=== PATIENT | male | born 1960 | race Caucasian/White ===

== ENCOUNTER 2016-07-12 07:41 | Day surgery (SDC) | payer BC ==
[2016-07-12] MEDS ORDERED: Dextrose 5%-Lactated Ringers 1,000 ML IV SCH (08:00)
[2016-07-12] MEDS ORDERED: Glycopyrrolate 0.2 MG/ML 2 ML SYRINGE IVPUSH ONE (08:45)
[2016-07-12] MEDS ORDERED: Midazolam 1 MG/ML 2 ML SDV ONE (09:33)
[2016-07-12] MEDS ORDERED: fentaNYL 100 MCG/2 ML SDV ONE (09:33)
[2016-07-12] MEDS ORDERED: Propofol 200 MG/20 ML SDV ONE (09:34)
[2016-07-12 11:15] VITALS: BP 108/71
--- NOTE | 2016-07-16 12:11 | OR ---
DATE OF PROCEDURE: 07/12/2016 PREOPERATIVE DIAGNOSES: 1. Upper abdominal pain and heartburn. 2. Indications for screening colonoscopy. POSTOPERATIVE DIAGNOSES: 1. Moderate-sized hiatal hernia with active gastroesophageal reflux disease. 2. [id number] antral gastritis and duodenitis. 3. Uncomplicated left colonic diverticulosis. OPERATIVE PROCEDURE: 1. Esophagogastroduodenoscopy with. a. Biopsy of esophagogastric junction for histologic evaluation. b. Biopsies of antrum for CLOtest. 2. Flexible colonoscopy. ANESTHESIA: IV sedation. INDICATION FOR PROCEDURE: This 55-year-old referred for evaluation of some heartburn and epigastric discomfort. He also meets indication for colon screening. Plan is to proceed with upper and lower endoscopy with biopsies and/or polypectomy as indicated. Potential risks including bleeding and perforation were discussed, and the patient wishes to proceed. DETAILS OF PROCEDURE: The patient was taken to the operating room and placed in a left lateral decubitus position. IV sedation was administered, after which the upper GI endoscope was passed orally through the length of the esophagus and into the stomach with retroflexion view of the fundus, thereafter through the pyloric channel and into the proximal duodenum. FINDINGS: Included normal hypopharynx, larynx, upper esophageal sphincter, and esophageal body. At the EG junction, there was a moderate hiatal hernia measuring around 2 cm to 3 cm with some grossly active gastroesophageal reflux disease, with there being quite a bit in the way of redness and friability of the mucosa at that level. No stricturing or gross evidence of neoplasia was seen. There was some slight upward extension of the gastroesophageal junction mucosal lining above the gastric folds, indicative of possible Hines's esophagus. Within the stomach, there was some redness within the antrum and proximal duodenum, beyond that throughout the remainder of the duodenum at the junction of the third and fourth portions was unremarkable. At this point, biopsies were obtained from the antrum and sent for CLOtest for H. pylori. Multiple biopsies were then obtained from the esophagogastric junction, sent for histologic evaluation. Minimal bleeding from the biopsy site was seen and the procedure was then concluded. Attention was then taken to the colonoscopy. Initial digital rectal exam was performed and was unremarkable. The colonoscope was then passed to the level of the rectum with retroflexion revealing uncomplicated hemorrhoidal columns. The scope was then eventually passed to the cecum. There was some liquid and solid stool, but only smaller areas of the mucosal surface were obscured. There was some uncomplicated left-sided diverticulosis, otherwise there were no areas of colitis. No polyps or other signs of neoplasia. The scope was then withdrawn. The above findings reconfirmed. Plan at this point, I began the patient on Protonix 40 mg daily. We will see the patient back in [facility] on 07/28/2016 to see how the medical management is going and discuss long-term treatment options regarding the gastroesophageal reflux disease. With regard to the colonoscopy, he does not have any family history of colon neoplasia, and given this, the next recommended colonoscopy would be in 10 years. Alejo Sharpe MD /[id number]
== END 2016-07-12 11:27 | disposition home or self-care (01) ==
LOC: JP.SDS 07:41
PROVIDERS: ATTEND Surgery
DX: Z12.11 Encounter for screening for malignant neoplasm of colon (principal); K29.50 Unspecified chronic gastritis without bleeding; K29.80 Duodenitis without bleeding; K57.30 Diverticulosis of large intestine without perforation or abscess without bleeding; K44.9 Diaphragmatic hernia without obstruction or gangrene
CPT/HCPCS: 43239; 45378; 87081; 88305; J2250; J2704; J3010; J7042

== ENCOUNTER 2016-08-02 06:09 | Inpatient (IN) | payer BC ==
[2016-08-02] MEDS ORDERED: Midazolam 1 MG/ML 2 ML SDV ONE (07:19)
[2016-08-02] MEDS ORDERED: fentaNYL 250 MCG/5 ML SDV ONE (07:19)
[2016-08-02] MEDS ORDERED: Ondansetron 4 MG/2 ML SDV ONE (07:20)
[2016-08-02] MEDS ORDERED: Succinylcholine/Normal Saline 200 MG/10 ML Syringe ONE (07:20)
[2016-08-02] MEDS ORDERED: Propofol 200 MG/20 ML SDV ONE (07:20)
[2016-08-02] MEDS ORDERED: Glucagon,Human Recombinant 1 MG Vial ONE (07:20)
[2016-08-02] MEDS ORDERED: Rocuronium 50 MG/5 ML Vial ONE ×2 (07:20→08:59)
[2016-08-02] MEDS ORDERED: Neostigmine Methylsulfate 1 MG/ML 5 ML Syringe ONE (07:20)
[2016-08-02] MEDS ORDERED: Dexamethasone 4 MG/ML SDV ONE ×2 (07:20→09:54)
[2016-08-02] MEDS ORDERED: Albuterol/Ipratropium 3.0-0.5 MG/3 ML Neb Soln NEB ONE (07:30)
[2016-08-02] MEDS ORDERED: Naloxone 0.4 MG/ML SDV IVPUSH PRN (07:31)
[2016-08-02] MEDS: Dextrose 5%-Lactated Ringers 1,000 ML IV SCH ×2 (07:37→11:10)
[2016-08-02] MEDS: HYDROmorphone/Normal Saline 15 MG/30 ML PCA IV PRN ×2 (07:38→07:40)
[2016-08-02] MEDS ORDERED: ePHEDrine 50 MG/ML SDV ONE (08:26)
[2016-08-02] MEDS ORDERED: ceFAZolin 2 GM in Premix Bag 1 BAG IV ONE (08:30)
[2016-08-02] MEDS ORDERED: fentaNYL 100 MCG/2 ML SDV ONE (09:20)
[2016-08-02] MEDS ORDERED: Phenylephrine 1% 10 MG/ML SDV ONE (09:27)
[2016-08-02] MEDS ORDERED: Lactated Ringers 1,000 ML ONE (09:31)
[2016-08-02] MEDS ORDERED: Dextrose 5%-Lactated Ringers 1,000 ML IV SCH (12:15)
[2016-08-02] MEDS ORDERED: Ondansetron 4 MG/2 ML SDV IVPUSH PRN (12:28)
[2016-08-02] MEDS ORDERED: Albuterol/Ipratropium 3.0-0.5 MG/3 ML Neb Soln INH PRN (12:29)
[2016-08-02] MEDS: Metoclopramide 10 MG/2 ML SDV IVPUSH SCH ×2 (13:45→20:10)
[2016-08-02] MEDS ORDERED: Pantoprazole 40 MG Vial IV SCH (14:00)
[2016-08-02] MEDS: ceFAZolin 2 GM in Sodium Chloride 0.9% 50 ML IV SCH ×2 (15:10→22:29)
[2016-08-02] MEDS: Albuterol/Ipratropium 3.0-0.5 MG/3 ML Neb Soln INH SCH ×3 (15:15→22:31)
[2016-08-02] MEDS: Formoterol/Mometasone 200-5 MCG 8.8 GM Inhaler IH SCH (20:10)
[2016-08-03] MEDS: Metoclopramide 10 MG/2 ML SDV IVPUSH SCH ×2 (02:33→07:40)
[2016-08-03] MEDS: Albuterol/Ipratropium 3.0-0.5 MG/3 ML Neb Soln INH SCH (07:11)
[2016-08-03] MEDS: Formoterol/Mometasone 200-5 MCG 8.8 GM Inhaler IH SCH (07:11)
[2016-08-03] MEDS: ceFAZolin 2 GM in Sodium Chloride 0.9% 50 ML IV SCH (07:40)
[2016-08-03] MEDS ORDERED: HYDROmorphone 2 MG Tab PO PRN (07:48)
[2016-08-03 08:14] VITALS: BP 112/60
[2016-08-03] MEDS ORDERED: Hydrochlorothiazide 12.5 MG Cap PO SCH (09:00)
[2016-08-03] MEDS ORDERED: Lisinopril 20 MG Tab PO SCH (09:00)
--- NOTE | 2016-08-04 00:34 | DISCH ---
ADMISSION DIAGNOSES: Gastroesophageal reflux disease refractory to medical management, hypertension, asthma, DISCHARGE DIAGNOSES: Diagnostic laparoscopy with Kell fundoplication with repair of paraesophageal hernia with mesh, excision of mediastinal lipoma, and wedge biopsy of left lobe of liver for paraesophageal diaphragmatic hernia associated with gastroesophageal reflux disease refractory to medical management, mediastinal lipoma, metastatic nodular lesion surface of medial aspect of hepatic segment 3. Date of surgery 08/02/2016. HISTORY: Jose Lees is a 55-year-old male who has had GERD refractory to medical management. After preoperative evaluation and discussion of possible risks and possible complications, he wished to proceed with surgical procedure. HOSPITAL COURSE: Caty had his surgery on 08/02/2016. He had no operative complications. On postop day 1, he tolerated a full liquid diet. His pain was well managed. His activity was good and he was ready to be discharged to home. PHYSICAL EXAMINATION: GENERAL: Jose is a 55-year-old male. VITAL SIGNS: Height is 6 feet. Weight is 242 pounds. TPR is 97.6, 81, 18. Blood pressure 107/67. HEENT: Negative. NECK: Supple. HEART: Regular rate and rhythm. LUNGS: Clear. ABDOMEN: Dressings are dry and intact. Abdominal binder is on. EXTREMITIES: Without peripheral edema. DISPOSITION: Discharged to home. CONDITION: Stable and improving. FOLLOWUP: With Alejo Sharpe MD, at [facility] on 08/11/2016 at 9:00 a.m. HOME MEDICATIONS: Dilaudid 2 mg 1 to 2 every 4 hours p.r.n. pain. He is to resume his home medication of Tylenol 325 mg every 4 hours p.r.n. pain. ProAir inhaler 2 puffs inhalation every 4 hours p.r.n. shortness of breath. DuoNeb 3.0-0.5/3 mL, 3 mL inhalation 4 times a day p.r.n. shortness of breath, Symbicort 160/4.5 mcg 2 puffs inhalation twice daily, Flonase 2 sprays in each nostril twice daily and lisinopril hydrochlorothiazide 20/12.5 mg one tablet daily, Protonix 40 mg daily. DIET AFTER DISCHARGE: Full liquid diet for 2 weeks. Drink 8 to 10 glasses of water a day. ACTIVITY: As tolerated. No lifting greater than 10 pounds for 2 weeks[address] Driving, do not drive on pain medication. Shower bathing, may shower. Wear abdominal binder for 2 weeks and then as tolerated. Keep operative site clean and dry. Notify provider of fever, increased pain, nausea, vomiting, and use incentive spirometer 10 times every hour while awake.
--- NOTE | 2016-08-10 09:50 | OR ---
DATE OF PROCEDURE: 08/02/2016 PREOPERATIVE DIAGNOSIS: Gastroesophageal reflux disease refractory to medical management. POSTOPERATIVE DIAGNOSES: 1. Gastroesophageal reflux disease refractory to medical management associated with large paraesophageal diaphragmatic hernia. 2. Mediastinal lipoma. 3. Nodular lesion over the medial aspect of hepatic segment III. OPERATIVE PROCEDURE: Diagnostic laparoscopy with: 1. Kell fundoplication with repair of paraesophageal diaphragmatic hernia with mesh (67021). 2. Excision of mediastinal lipoma (14209). 3. Wedge excision of a nodular lesion of hepatic segment III (26014). ANESTHESIA: General. COURTESY DRIVER: Anju Cook PA-C. INDICATION FOR PROCEDURE: This is a 55-year-old male presenting with longstanding gastroesophageal reflux disease that has become progressively refractory to medical management. After preoperative evaluation and discussion, he wished to proceed with a Kell fundoplication. Potential risks of the procedure including bleeding, infection, injury to the viscera in the area, problems with fundoplication such as dysphagia, gas-bloat syndrome, disorders of gastric emptying rate, as well as possible incomplete relief of reflux symptoms were all gone over, along with the remote possibility of cardiopulmonary, septic, or hemorrhagic complications leading to , and the patient wishes to proceed. DETAILS OF PROCEDURE: The patient was taken to the operating room, and after general endotracheal anesthesia was induced, the patient was placed in a lithotomy position. Hopper catheter was inserted and the abdomen prepped and draped. At 15 cm inferior 5 cm was left of xiphoid process, transverse incision was made and peritoneal cavity entered under direct vision with an Optiview trocar inflated to 15 mmHg pressure with CO2. Laparoscope was then reinserted. No underlying trocar insertion site injuries were seen. Following this, 4 additional trocars were placed across the upper and mid abdomen, and general exploration was undertaken. The patient was noted to have a fairly marked hepatomegaly, as well as quite a bit of omental fat. Apart from that, there was a small nodular lesion over the medial-most aspect of the hepatic segment III. For diagnostic purposes, this was excised by means of wedge resection using the Harmonic scalpel for dissection. This specimen was then delivered from the field with good hemostasis being confirmed. At this point, the liver was retracted anteriorly. The patient was noted to have a fairly large diaphragmatic hernia with a significant paraesophageal component to it. This contained some omentum, as well as perigastric fat and a portion of the fundus of the stomach. The hernia was reduced, and the peritoneum to the right, anterior, and to the left of the distal esophagus was incised and reflected downward. The esophagus was then dissected free from the crura on each side, and the dissection posterior to the esophagus lead to an area of lipoma, which was then dissected free and removed to facilitate a more adequate crural closure. This lipoma was delivered piecemeal through the camera port. At this point, the esophagus was further dissected away from some of the areolar___ soft tissues, and at that point, a roughly 5 cm intraabdominal esophageal length was confirmed without traction around the Eri drain, which at that point had been placed at the EG junction. The crural repair it was then accomplished with a series of 0-Ethibond sutures reinforced with PTFE pledgets. Given the extent of the crural defect, a Phasix mesh was selected. This was cut such that it lay across the crural repair and up along the esophagus on each side. This was fixed in position with the titanium tacking screws. At this point, the omentum was divided away from the greater curvature of the stomach, beginning at the midportion of the stomach, with Harmonic scalpel. The dissection then continued upward to divide the short gastric vessels, including the highest and posterior short gastric vessels. There was a small amount of bleeding from one of the short gastric vessels, which was controlled with the Harmonic scalpel and then subsequently reinforced with 4 mL of fibrin sealant into that area. The fundus at that point was nicely mobile and the tip of the fundus retrieved through retroesophageal window. The Cutler drain at that point had been removed. A guidewire was then passed per Anesthesia across the esophagus and into the stomach and, over that, a 54-Yakut Savary dilator positioned. A 3-stitch 2 cm fundoplication was then accomplished with 0-Ethibond sutures, reinforced with PTFE pledgets. Each of these sutures included bites of the underlying esophagus to help fix the position, and then the uppermost fundoplication stitch was also taken up to the diaphragm overlying it, and then one additional stitch with the same suture and pledget combination was placed on the left side of the fundoplication up to the diaphragm as well. At this point, the dilator and wire were removed, and the fundoplication was felt to be adequately floppy. No further problems were noted. Trocars were then sequentially removed and the peritoneal cavity deflated. Incisions were closed with some 6-0 Vicryl skin stitch. The camera port was closed at fascia level with 0-Vicryl stitch. The patient was taken to the recovery room in a satisfactory condition. Physician senior sales assistant, Anju Cook, played an essential role in assisting in this case, helping to position the patient, retracting structures as needed, as well suturing and cutting sutures as been indicated. Her presence improved the patient's safety and decreased operative time. Alejo Sharpe MD /[id number]
== END 2016-08-03 10:10 | disposition home or self-care (01) | DRG 220 ==
LOC: JP.SDS 06:09 → JP.SDSSCHI 06:09 → UNDOADMIN 11:00 → JP.MS 11:00 → JP.SDSSCHI 11:00 → UNDOADMIN 11:00 → EDSTATUS 12:50 → UNDODISIN 08-03 10:10 → UNDOADMIN 08-11 11:00 → JP.SDSSCHI 08-11 11:00
PROVIDERS: ADMIT Surgery; ATTEND Surgery
PROC: 0BUR4JZ (ICD-10-PCS; principal; 2016-08-02)
PROC: 0FB24ZX Excision of Left Lobe Liver, Percutaneous Endoscopic Approach, Diagnostic (ICD-10-PCS; principal; 2016-08-02)
PROC: 0WBC4ZX Excision of Mediastinum, Percutaneous Endoscopic Approach, Diagnostic (ICD-10-PCS; principal; 2016-08-02)
PROC: 0BUS4JZ (ICD-10-PCS; principal; 2016-08-02)
PROC: 0DV44ZZ Restriction of Esophagogastric Junction, Percutaneous Endoscopic Approach (ICD-10-PCS; principal; 2016-08-02)
DX: K21.9 Gastro-esophageal reflux disease without esophagitis (principal); D17.4 Benign lipomatous neoplasm of intrathoracic organs; I10 Essential (primary) hypertension; J45.909 Unspecified asthma, uncomplicated; K76.9 Liver disease, unspecified; R16.0 Hepatomegaly, not elsewhere classified; K44.0 Diaphragmatic hernia with obstruction, without gangrene
CPT/HCPCS: 88304; 88307; 94640; 94640-76; A9270-GY; C1781; C9113; J0690; J1100; J1170; J1610; J2250; J2370; J2405; J2704; J2765; J3010; J7042; J7050; J7120; J7620

== ENCOUNTER 2016-08-04 10:31 | Emergency (ER) | payer BC ==
[2016-08-04 11:09] VITALS: BP 107/69
--- NOTE | 2016-08-04 11:38 | EDM.PDOC ---
ED HPI RENAL/ - General Chief Complaint: Gastrointestinal Problem Stated Complaint: ACID REFLUX/INFECTION? Time Seen by Provider: 08/04/16 11:21 Source: Reports: Patient, Old records, RN notes reviewed History Limitations: Reports: No limitations - History of Present Illness INITIAL COMMENTS - FREE TEXT/NARRATIVE: 55-year-old gentleman presents emergency Department a complaint of burning with urination he did provide a urine sample at the clinic was instructed by the clinic nursing staff to report to the emergency department for further treatment and evaluation, he states all the symptoms really started this morning he is postop day 3 from a Kell fundoplication he has had chills at home felt feverish he has also not had a bowel movement in 3 days has tried Dulcolax without success he is going to try mag citrate today - Related Data Allergies/ADRs: Allergies Allergy/AdvReac Type Severity Reaction Status Date / Time No Known Allergies Allergy Verified 08/04/16 11:14 Home Meds: Home Meds Acetaminophen [Tylenol] 325 mg PO Q4HR PRN 07/05/16 [History] Albuterol Sulfate [Proair Hfa] 2 puff IH Q4HR PRN 07/05/16 [History] Albuterol/Ipratropium [DuoNeb 3.0-0.5 MG/3 ML] 3 ml IH QID PRN 07/05/16 [History ] Budesonide/Formoterol [Symbicort 160-4.5 MCG] 2 puff INH BID 07/05/16 [History] Fluticasone Propionate [Flonase] 2 spray NASBOTH BID 07/05/16 [History] Lisinopril/Hydrochlorothiazide [Lisinopril-Hctz 20-12.5 mg Tab] 1 tab PO DAILY 07/05/16 [History] Pantoprazole Sodium [Protonix] 40 mg PO DAILY 08/02/16 [History] HYDROmorphone [Dilaudid] 2 - 4 mg PO Q4H PRN #50 tablet 08/03/16 [Rx] Mometasone/Formoterol [Dulera 200-5 MCG] 2 puff IH BIDRT 08/04/16 [History] Past Medical History HEENT History: Reports: Hard of hearing, Impaired vision Other HEENT History: reading glasses Cardiovascular History: Reports: Hypertension Respiratory History: Reports: Asthma Gastrointestinal History: Reports: GERD Other Gastrointestinal History: "belching" Musculoskeletal History: Reports: Arthritis, Fracture - Infectious Disease History Infectious Disease History: Reports: Chicken pox - Past Surgical History HEENT Surgical History: Reports: None GI Surgical History: Reports: Cholecystectomy, Colon, EGD, Kell fundoplication Musculoskeletal Surgical History: Reports: Shoulder surgery Other Musculoskeletal Surgeries/Procedures:: right shoulder surgery 20 or so years ago Social & Family History - Family History Family Medical History: Noncontributory - Tobacco Use Smoking Status *Q: Never Smoker Second Hand Smoke Exposure: No - Caffeine Use Caffeine Use: Reports: Coffee - Alcohol Use Days Per Week of Alcohol Use: 2 Number of Drinks Per Day: 3 Total Drinks Per Week: 6 - Recreational Drug Use Recreational Drug Use: No ED ROS GENERAL - Review of Systems Review Of Systems: See Below Constitutional: Reports: chills HEENT: Reports: No symptoms Respiratory: Reports: No Symptoms Cardiovascular: Reports: No symptoms GI/Abdominal: Reports: Abdominal pain : Reports: dysuria. Denies: flank pain, hematuria ED EXAM, RENAL/ - Physical Exam Exam: See Below Exam Limited By: No limitations General Appearance: alert, WD/WN, no apparent distress Respiratory/Chest: no respiratory distress, lungs clear, normal breath sounds, no accessory muscle use Cardiovascular: regular rate, rhythm, no murmur GI/Abdominal: soft, tender (All surgical sites, wounds clean dry and intact, no suprapubic tenderness no CVA tenderness) Course - Vital Signs Last Recorded V/S: Last Vital Signs Temp 97.5 F 08/04/16 11:13 Pulse 123 H 08/04/16 11:13 Resp 15 08/04/16 11:13 BP 107/69 08/04/16 11:13 Pulse Ox 93 L 08/04/16 11:13 - Orders/Labs/Meds Orders: Active Orders 24 hr Category Date Time Status cefTRIAXone 1 GM,Lidocaine 1% 2.1 ML Med 08/04/16 12:41 Ordered cefTRIAXone [Rocephin] 1 gm Lidocaine 1% [Xylocaine-MPF 1%] 2.1 ml IM ONETIME Labs: Laboratory Tests 08/04/16 08/04/16 08/04/16 Range/Units 11:44 11:44 11:44 WBC 30.2 H* (4.5-11.0) K/uL RBC 4.65 (4.30-5.90) M/uL Hgb 14.6 (12.0-15.0) g/dL Hct 42.5 (40.0-54.0) % MCV 91 (80-98) fL MCH 31 (27-31) pg MCHC 34 (32-36) % Plt Count 303 (150-400) K/uL Neut % (Auto) 86 H (36-66) % Lymph % (Auto) 3 L (24-44) % [place] % (Auto) 11 H (2-6) % Eos % (Auto) 0 L (2-4) % Baso % (Auto) 0 (0-1) % Sodium 137 L (140-148) mmol/L Potassium 3.8 (3.6-5.2) mmol/L Chloride 97 L (100-108) mmol/L Carbon Dioxide 26 (21-32) mmol/L Anion Gap 17.8 H (5.0-14.0) mmol/L BUN 25 H (7-18) mg/dL Creatinine 1.6 H (0.8-1.3) mg/dL Est Cr Clr Drug Dosing 56.58 mL/min Estimated GFR (MDRD) 45 L (>60) Glucose 125 H (74-106) mg/dL Lactic Acid 1.8 (0.4-2.0) mmol/L Calcium 8.7 (8.5-10.1) mg/dL Total Bilirubin 1.5 H (0.2-1.0) mg/dL AST 56 H (15-37) U/L ALT 83 H (12-78) U/L Alkaline Phosphatase 84 (46-116) U/L Total Protein 7.5 (6.4-8.2) g/dL Albumin 3.8 (3.4-5.0) g/dL Globulin 3.7 H (2.3-3.5) g/dL Albumin/Globulin Ratio 1.0 L (1.2-2.2) Departure - Departure Time of Disposition: 12:44 Disposition: Home, Self-Care 01 Condition: good Clinical Impression: Urinary tract infection Qualifiers: Urinary tract infection type: acute cystitis Hematuria presence: with hematuria Qualified Code(s): N30.01 - Acute cystitis with hematuria Forms: ED Department Discharge Additional Instructions: Start antibiotic tomorrow, take full course, Please followup with your primary care provider in 3-5 days if not better, please call return to the emergency department with worsening of symptoms. - My Orders Last 24 Hours: My Active Orders 08/04/16 12:41 cefTRIAXone 1 GM,Lidocaine 1% 2.1 ML cefTRIAXone [Rocephin] 1 gm Lidocaine 1% [ Xylocaine-MPF 1%] 2.1 ml IM ONETIME - Assessment/Plan Last 24 Hours: My Active Orders 08/04/16 12:41 cefTRIAXone 1 GM,Lidocaine 1% 2.1 ML cefTRIAXone [Rocephin] 1 gm Lidocaine 1% [ Xylocaine-MPF 1%] 2.1 ml IM ONETIME Plan: Assessment Acuity = acute Site and laterality = urinary tract infection complicated by patient postop day 3 Kell fundoplication Etiology = probable Escherichia coli Manifestations = dysuria Location of injury = home Lab values = WBC elevated at 30.2 cassettes leukocytosis, sodium low 137 is hyponatremia creatinine elevated 1.6 this is acute renal failure stage GIII a lactic acid normal at 1.8 total bilirubin elevated 1.5 consistent hyperbilirubinemia AST elevated 56 ALT elevated at 83 his elevated liver enzymes urinalysis performed in the clinic that showed WBCs and positive for nitrates culture is pending Plan I did review lab work with him he was provided 1 g Rocephin in the emergency department started on ciprofloxacin 500 by mouth twice a day x10 days, followup with primary care in 3-5 days if no improvement Patient was in agreement with the plan all questions were answered, they were instructed to return to the emergency department or call for worsening symptoms. This note was dictated using [employer] voice recognition software please call with any questions.
[2016-08-04] MEDS ORDERED: cefTRIAXone 1 GM, Lidocaine 1% 2.1 ML IM ONE ×2 (12:41)
== END 2016-08-04 13:25 | disposition home or self-care (01) ==
LOC: JP.ED 10:31
DX: N30.01 Acute cystitis with hematuria (principal); I10 Essential (primary) hypertension; J45.909 Unspecified asthma, uncomplicated; K21.9 Gastro-esophageal reflux disease without esophagitis; Z90.49 Acquired absence of other specified parts of digestive tract; Z98.890 Other specified postprocedural states
CPT/HCPCS: 36415; 80053; 83605; 85025; 96372; 99284; J0696

== ENCOUNTER 2020-03-01 12:37 | Inpatient (IN) | payer BC ==
--- NOTE | 2020-03-01 13:27 | EDM.PDOC ---
ED HPI GENERAL MEDICAL PROBLEM - General Chief Complaint: Abdominal Pain Stated Complaint: stomach pain Time Seen by Provider: 03/01/20 13:25 Source of Information: Reports: Patient History Limitations: Reports: No Limitations - History of Present Illness INITIAL COMMENTS - FREE TEXT/NARRATIVE: pt was sent from the clinic by Dr Saba with rt lower abdomanal pain. He started having discomfort yesterday and it was worse today. Onset: Other ( started yesterday. ) Duration: Hour(s): Location: Reports: Abdomen Associated Symptoms: Reports: Loss of Appetite, Other (pt had a bm today. ) Right Lower Abdomen Pain Score (Numeric/FACES): 5 - Related Data Allergies Allergy/AdvReac Type Severity Reaction Status Date / Time No Known Allergies Allergy Verified 03/01/20 13:28 Home Meds: Home Meds Acetaminophen [Tylenol] 325 mg PO Q4HR PRN 07/05/16 [History] Albuterol Sulfate [Proair Hfa] 2 puff IH Q4HR PRN 07/05/16 [History] Albuterol/Ipratropium [DuoNeb 3.0-0.5 MG/3 ML] 3 ml IH QID PRN 07/05/16 [History] Budesonide/Formoterol [Symbicort 160-4.5 MCG] 2 puff INH BID 07/05/16 [History] Fluticasone Propionate [Flonase] 2 spray NASBOTH BID 07/05/16 [History] Lisinopril/Hydrochlorothiazide [Lisinopril-Hctz 20-12.5 mg Tab] 1 tab PO DAILY 07/05/16 [History] Mometasone/Formoterol [Dulera 200-5 MCG] 2 puff IH BIDRT 08/04/16 [History] Aspirin [Halfprin] 81 mg PO DAILY 03/01/20 [History] Multivitamin [Multi-Vitamin Daily] 1 each PO DAILY 03/01/20 [History] Past Medical History HEENT History: Reports: Hard of Hearing, Impaired Vision Other HEENT History: reading glasses Cardiovascular History: Reports: Hypertension Respiratory History: Reports: Asthma Gastrointestinal History: Reports: GERD Other Gastrointestinal History: "belching" Musculoskeletal History: Reports: Arthritis, Fracture - Infectious Disease History Infectious Disease History: Reports: Chicken Pox - Past Surgical History GI Surgical History: Reports: Cholecystectomy, Colon, EGD, Kell Fundoplication Musculoskeletal Surgical History: Reports: Shoulder Surgery Social & Family History - Family History Family Medical History: Noncontributory - Caffeine Use Caffeine Use: Reports: Coffee ED ROS GENERAL - Review of Systems Review Of Systems: See Below Constitutional: Reports: Decreased Appetite HEENT: Reports: No Symptoms Respiratory: Reports: No Symptoms Cardiovascular: Reports: No Symptoms Endocrine: Reports: No Symptoms GI/Abdominal: Reports: Abdominal Pain, Decreased Appetite : Reports: No Symptoms Musculoskeletal: Reports: No Symptoms Skin: Reports: No Symptoms ED EXAM, GI/ABD - Physical Exam Exam: See Below Text/Narrative:: pt arrived with a history of 2 days of rt lower abdomanal pain. Exam Limited By: No Limitations General Appearance: Alert, Anxious, Moderate Distress Ears: Normal TMs Throat/Mouth: Normal Inspection Head: Atraumatic Neck: Normal Inspection Respiratory/Chest: No Respiratory Distress Cardiovascular: Regular Rate, Rhythm GI/Abdominal Exam: Tender, Other (pt is quite guarded in the rt lower abdoman. ) (Male) Exam: Deferred Rectal (Males) Exam: Deferred Back Exam: Normal Inspection Extremities: Normal Inspection Neurological: Alert, Oriented, Normal Cognition Psychiatric: Anxious Course - Vital Signs Last Recorded V/S: Last Vital Signs Temp 37.2 C 03/02/20 02:37 Pulse 65 03/02/20 07:15 Resp 18 03/02/20 02:37 BP 121/63 03/02/20 02:37 Pulse Ox 95 03/02/20 07:15 - Orders/Labs/Meds Orders: Active Orders 24 hr Category Date Time Status Admission Status [Patient Status] [ADT] Routine ADT 03/01/20 17:15 Active CULTURE ANAEROBIC [RM] Routine Lab 03/01/20 17:38 Results CULTURE WOUND + SMEAR [RM] Routine Lab 03/01/20 17:38 Results Medication Orders Albuterol/Ipratropium (Duoneb 3.0-0.5 Mg/3 Ml) 3 ml NEB QIDRT ALLYSON Last Admin: 03/02/20 07:12 Dose: 3 ml Documented by: Admin: 03/01/20 20:20 Dose: 3 ml Documented by: OCTAVIANO Albuterol/Ipratropium (Duoneb 3.0-0.5 Mg/3 Ml) 3 ml NEB ASDIRECTED PRN PRN Reason: Shortness of Breath Benzocaine/Menthol (Cepacol Sore Throat) 1 lozenge MUCMEM ASDIRECTED PRN PRN Reason: Sore Throat Bisacodyl (Dulcolax) 10 mg PO BID ALLYSON Docusate Sodium (Colace) 100 mg PO BID ALL[facility]ON Hydrochlorothiazide (Hydrochlorothiazide) 12.5 mg PO DAILY [facility]ON Hydromorphone HCl (Dilaudid Taping Supervisor 15 Mg In Ns 30 Ml) 0 mg IV ASDIRECTED PRN; Protocol PRN Reason: STUDENT TEACHING COORDINATOR PAIN CONTROL Last Admin: 03/01/20 18:02 Dose: 15 mg Documented by: RACHNA Hydroxyzine HCl (Vistaril) 100 mg IM Q4H PRN PRN Reason: PAIN Dextrose/Lactated Ringer's (Dextrose 5%-Lactated Ringers) 1,000 mls @ 150 mls/hr IV ASDIRECTED ALLYSON Last Admin: 03/02/20 02:37 Dose: 150 mls/hr Documented by: ALLYSONUSAM Ampicillin Sodium/Sulbactam (Sodium 3 gm/ Sodium Chloride) 100 mls @ 200 mls/hr IV Q6H [place] Lisinopril (Prinivil) 20 mg PO DAILY [facility] Mometasone Furoate/Formoterol Fumar (Dulera 200-5 Mcg) 2 puff IH BIDRT [facility] Naloxone HCl (Narcan) 0.1 mg IV ASDIRECTED PRN PRN Reason: decreased respiratory rate Ondansetron HCl (Zofran) 4 mg IVPUSH Q4H PRN PRN Reason: Nausea Pantoprazole Sodium (Protonix Iv) 40 mg IVPUSH Q24H [facility] Last Admin: 03/01/20 18:34 Dose: 40 mg Documented by: REMEDIOS Pneumococcal Polyvalent Vaccine (Pneumovax 23) 0.5 ml IM .ONCE ONE Stop: 03/02/20 09:01 Labs: Laboratory Tests 03/01/20 Range/Units 15:01 SARS-CoV-2 RNA (JAYA) Negative (NEGATIVE) Meds: Medications Generic Name Dose Route Start Last Admin Trade Name Freq PRN Reason Stop Dose Admin Albuterol/Ipratropium 3 ml 03/01/20 21:00 03/02/20 07:12 Duoneb 3.0-0.5 Mg/3 Ml NEB 3 ml QIDRT [place]YSON Administration Albuterol/Ipratropium 3 ml 03/01/20 17:29 Duoneb 3.0-0.5 Mg/3 Ml NEB ASDIRECTED PRN Shortness of Breath Benzocaine/Menthol 1 lozenge 03/01/20 20:30 Cepacol Sore Throat MUCMEM ASDIRECTED PRN Sore Throat Bisacodyl 10 mg 03/02/20 09:00 Dulcolax PO BID [facility] Docusate Sodium 100 mg 03/02/20 09:00 Colace PO BID [facility] Hydrochlorothiazide 12.5 mg 03/02/20 09:00 Hydrochlorothiazide PO DAILY [facility] Hydromorphone HCl 0 mg 03/01/20 17:49 03/01/20 18:02 Dilaudid Taping Supervisor 15 Mg In Ns 30 Ml IV 15 mg ASDIRECTED PRN Administration STUDENT TEACHING COORDINATOR PAIN CONTROL Protocol Hydroxyzine HCl 100 mg 03/01/20 17:26 Vistaril IM Q4H PRN PAIN Dextrose/Lactated Ringer's 1,000 mls @ 150 mls/hr 03/01/20 17:30 03/02/20 02:37 Dextrose 5%-Lactated Ringers IV 150 mls/hr ASDIRECTED [facility] Administration Ampicillin Sodium/Sulbactam 100 mls @ 200 mls/hr 03/02/20 08:00 Sodium 3 gm/ Sodium Chloride IV Q6H [facility] Lisinopril 20 mg 03/02/20 09:00 Prinivil PO DAILY [facility] Mometasone Furoate/Formoterol Fumar 2 puff 03/02/20 07:30 Dulera 200-5 Mcg IH BIDRT [facility] Naloxone HCl 0.1 mg 03/01/20 18:00 Narcan IV ASDIRECTED PRN decreased respiratory rate Ondansetron HCl 4 mg 03/01/20 17:26 Zofran IVPUSH Q4H PRN Nausea Pantoprazole Sodium 40 mg 03/01/20 18:00 03/01/20 18:34 Protonix Iv IVPUSH 40 mg Q24H [facility] Administration Pneumococcal Polyvalent Vaccine 0.5 ml 03/02/20 09:00 Pneumovax 23 IM 03/02/20 09:01 .ONCE ONE Discontinued Medications Generic Name Dose Route Start Last Admin Trade Name Freq PRN Reason Stop Dose Admin Bupivacaine HCl/Epinephrine Bitart Confirm 03/01/20 15:19 03/01/20 16:50 Marcaine 0.5%/Epinephrine 1:200,000 Administered 03/01/20 15:20 20 ml Dose Administration 50 ml .ROUTE .STK-MED ONE Ropivacaine 50 ml/ 0 ml 03/01/20 16:00 03/01/20 16:30 Dexamethasone 8 mg/ NERVRT 80 syringe Epinephrine HCl 0.4 mg/ Sodium ASDIRECTED ALLYSON Administration Chloride 27.6 ml Dexamethasone Confirm 03/01/20 16:00 Dexamethasone Administered 03/01/20 16:01 Dose 4 mg .ROUTE .STK-MED ONE Fentanyl Confirm 03/01/20 16:00 Sublimaze Administered 03/01/20 16:01 Dose 250 mcg .ROUTE .STK-MED ONE Fentanyl Confirm 03/01/20 16:35 Sublimaze Administered 03/01/20 16:36 Dose 250 mcg .ROUTE .STK-MED ONE Glycopyrrolate Confirm 03/01/20 16:00 Robinul Administered 03/01/20 16:01 Dose 1 mg .ROUTE .STK-MED ONE Hydromorphone HCl 0.5 mg 03/01/20 14:53 03/01/20 15:14 Dilaudid IVPUSH 03/01/20 14:54 0.5 mg ONETIME ONE Administration Sodium Chloride 1,000 mls @ 999 mls/hr 03/01/20 13:30 03/01/20 15:12 Normal Saline IV 999 mls/hr ASDIRECTED ALLYSON Administration Sodium Chloride 85 mls @ 3.5 mls/sec 03/01/20 13:30 03/01/20 13:56 Normal Saline IV 03/01/20 13:31 3.5 mls/sec ASDIRECTED [place]ON Administration Ampicillin Sodium/Sulbactam 100 mls @ 200 mls/hr 03/01/20 15:15 03/01/20 15:25 Sodium 3 gm/ Sodium Chloride IV 03/01/20 15:44 200 mls/hr ONETIME ONE Administration Lactated Ringer's Confirm 03/01/20 16:58 Ringers, Lactated Administered 03/01/20 16:59 Dose 1,000 mls @ as directed .ROUTE .STK-MED ONE Ampicillin Sodium/Sulbactam 100 mls @ 200 mls/hr 03/01/20 21:00 03/01/20 20:20 Sodium 3 gm/ Sodium Chloride IV 03/01/20 21:29 200 mls/hr Q6H ONE Administration Iopamidol 150 ml 03/01/20 13:29 03/01/20 13:56 Isovue-300 (61%) IV 03/01/20 13:30 150 ml ONETIME ONE Administration Mometasone Furoate/Formoterol Fumar 2 puff 03/01/20 21:00 03/01/20 20:20 Dulera 200-5 Mcg IH Not Given BID [facility]ON Neostigmine Methylsulfate Confirm 03/01/20 16:00 Neostigmine Administered 03/01/20 16:01 Dose 5 mg .ROUTE .STK-MED ONE Ondansetron HCl Confirm 03/01/20 16:00 Zofran Administered 03/01/20 16:01 Dose 4 mg .ROUTE .STK-MED ONE Propofol Confirm 03/01/20 16:00 Diprivan 20 Ml Administered 03/01/20 16:01 Dose 200 mg .ROUTE .STK-MED ONE Rocuronium [place]arrison Confirm 03/01/20 16:00 Zemuron Administered 03/01/20 16:01 Dose 50 mg .ROUTE .STK-MED ONE Sodium Chloride 10 ml 03/01/20 13:29 03/01/20 13:56 Saline Flush FLUSH 03/01/20 13:30 10 ml ONETIME ONE Administration Succinylcholine Chloride Confirm 03/01/20 16:00 Quelicin Administered 03/01/20 16:01 Dose 200 mg .ROUTE .STK-MED ONE - Re-Assessments/Exams Free Text/Narrative Re-Assessment/Exam: 03/01/20 03/01/20 14:55 cat scan which showed a acute appendicitis. Pt will be taken to the OR for surgery at 4 pm. Departure - Departure Time of Disposition: 14:56 Disposition: Admitted As Inpatient 65 Condition: Fair Clinical Impression: Appendicitis - Discharge Information
[2020-03-01] MEDS ORDERED: Iopamidol 612 MG/ML 500 ML Multipack Bottle IV ONE (13:29)
[2020-03-01] MEDS ORDERED: Sodium Chloride 0.9% 10 ML Syringe FLUSH ONE (13:29)
[2020-03-01] MEDS ORDERED: Sodium Chloride 0.9% 1,000 ML IV SCH (13:30)
--- NOTE | 2020-03-01 14:39 | CRLCT ---
INDICATION: Right lower quadrant abdominal pain. TECHNIQUE: CT of abdomen and pelvis performed after IV injection of 150 mL of Isovue-300. FINDINGS: Mild moderate degenerate hypertrophic changes throughout the spine. Osteopenia. Mild fibrosis or atelectasis in the lung bases. Postsurgical changes along the upper stomach and baljit of the hemidiaphragm to the diaphragmatic hiatus. Mild diffuse fatty infiltration of the liver. Cholecystectomy with common bile duct being upper limits of normal. Fluid and stranding about both kidneys likely chronic. Moderately prominent focal moderate-sized area of cortical thinning and scarring in the right kidney consistent with chronic insult. Fatty infiltration of the pancreas. Colonic diverticulosis. Moderately prominent dilatation of the appendix measuring up to 1.6 cm in transverse dimension. Appendiceal wall is mildly thickened and has abnormal enhancement. Appendicoliths in the appendiceal lumen including an obstructing proximal appendicolith. Moderately prominent inflammatory soft tissue stranding in the right lower quadrant and pelvic fat about the appendix with small amounts of fluid. No abscess or free air to suggest appendiceal rupture however given the severe inflammatory changes surrounding the appendix and size is appendix, there is a concern for impending appendiceal rupture. Remainder negative. IMPRESSION: 1. Typical changes of acute appendicitis as described above. Obstructing appendicolith at the origin of the appendix. No abscess or free air to suggest rupture but given the significant inflammatory changes and size of the appendix impending rupture is a concern. 2. Moderate-sized prominent area of scarring and cortical thinning right kidney consistent with previous insult. 3. Postsurgical changes along the diaphragmatic hiatus. 4. Colonic diverticulosis without evidence diverticulitis. Please note that all CT scans at this facility use dose modulation, iterative reconstruction, and/or weight-based dosing when appropriate to reduce radiation dose to as low as reasonably achievable. Dictated by Maxime Blank MD @ Mar 01 2020 2:36PM Signed by Dr. Maxime Blank @ Mar 01 2020 2:37PM
[2020-03-01] MEDS ORDERED: Ampicillin/Sulbactam Na 3 GM in Sodium Chloride 0.9% 100 ML IV ONE ×3 (14:51→21:00)
[2020-03-01] MEDS ORDERED: HYDROmorphone 0.5 MG/0.5 ML Syringe IVPUSH ONE (14:53)
[2020-03-01] MEDS ORDERED: Bupivacaine 0.5%/EPINEPHrine 1:200,000 50 ML MDV ONE (15:19)
[2020-03-01] MEDS ORDERED: fentaNYL 250 MCG/5 ML SDV ONE ×2 (16:00→16:35)
[2020-03-01] MEDS ORDERED: Propofol 200 MG/20 ML SDV ONE (16:00)
[2020-03-01] MEDS ORDERED: Dexamethasone 4 MG/ML SDV ONE (16:00)
[2020-03-01] MEDS ORDERED: Glycopyrrolate 0.2 MG/ML 5 ML MDV ONE (16:00)
[2020-03-01] MEDS ORDERED: Neostigmine Methylsulfate 1 MG/ML 5 ML Syringe ONE (16:00)
[2020-03-01] MEDS ORDERED: Ropivacaine 50 ML, dexAMETHasone 8 MG, EPINEPHrine 0.4 MG, Sodium Chloride 0.9% 27.6 ML NERVRT SCH ×4 (16:00)
[2020-03-01] MEDS ORDERED: Succinylcholine 200 MG/10 ML MDV ONE (16:00)
[2020-03-01] MEDS ORDERED: Ondansetron 4 MG/2 ML SDV ONE (16:00)
[2020-03-01] MEDS ORDERED: Rocuronium 50 MG/5 ML Vial ONE (16:00)
[2020-03-01] MEDS ORDERED: Lactated Ringers 1,000 ML ONE (16:58)
[2020-03-01] MEDS ORDERED: Ondansetron 4 MG/2 ML SDV IVPUSH PRN (17:26)
[2020-03-01] MEDS ORDERED: hydrOXYzine HCL 100 MG/2 ML SDV IM PRN (17:26)
[2020-03-01] MEDS ORDERED: Albuterol/Ipratropium 3.0-0.5 MG/3 ML Neb Soln NEB PRN (17:29)
[2020-03-01] MEDS ORDERED: Dextrose 5%-Lactated Ringers 1,000 ML IV SCH (17:30)
[2020-03-01] MEDS ORDERED: HYDROmorphone/Normal Saline 15 MG/30 ML PCA IV PRN (17:49)
[2020-03-01] MEDS ORDERED: Pneumococcal Polyvalent-23 Vaccine 0.5 ML SDV IM ONE (17:51)
[2020-03-01] MEDS ORDERED: Naloxone 0.4 MG/ML SDV IV PRN (18:00)
[2020-03-01] MEDS: Pantoprazole 40 MG Vial IVPUSH SCH (18:34)
[2020-03-01] MEDS: Albuterol/Ipratropium 3.0-0.5 MG/3 ML Neb Soln NEB SCH (20:20)
[2020-03-01] MEDS ORDERED: Formoterol/Mometasone 200-5 MCG 8.8 GM Inhaler IH SCH (21:00)
[2020-03-02] MEDS: Albuterol/Ipratropium 3.0-0.5 MG/3 ML Neb Soln NEB SCH ×4 (07:12→20:05)
[2020-03-02] MEDS: Ampicillin/Sulbactam Na 3 GM in Sodium Chloride 0.9% 100 ML IV SCH ×3 (07:51→20:05)
[2020-03-02] MEDS: Formoterol/Mometasone 200-5 MCG 8.8 GM Inhaler IH SCH ×2 (07:53→20:11)
[2020-03-02] MEDS: Lisinopril 20 MG Tab PO SCH (07:59)
[2020-03-02] MEDS: Bisacodyl 5 MG Tab PO SCH ×2 (07:59→20:09)
[2020-03-02] MEDS: Hydrochlorothiazide 12.5 MG Cap PO SCH (07:59)
[2020-03-02] MEDS: Docusate Sodium 100 MG Cap PO SCH ×2 (07:59→20:10)
[2020-03-02] MEDS ORDERED: HYDROmorphone 2 MG Tab PO PRN (08:59)
[2020-03-02] MEDS ORDERED: Acetaminophen 500 MG Tab PO PRN (08:59)
[2020-03-02] MEDS ORDERED: Dextrose 5%-Lactated Ringers 1,000 ML IV SCH (09:00)
[2020-03-02] MEDS ORDERED: Pneumococcal Polyvalent-23 Vaccine 0.5 ML SDV IM ONE (09:00)
[2020-03-02] MEDS: Pantoprazole 40 MG Vial IVPUSH SCH (17:00)
[2020-03-02] MEDS: Benzocaine/Cetylpyridinium/Menthol Lozenge MUCMEM PRN (20:05)
[2020-03-02] MEDS: Amoxicillin/Clavulanate K 875-125 MG Tab PO SCH (20:13)
[2020-03-03] MEDS: Albuterol/Ipratropium 3.0-0.5 MG/3 ML Neb Soln NEB SCH ×2 (06:58→12:27)
[2020-03-03] MEDS: Formoterol/Mometasone 200-5 MCG 8.8 GM Inhaler IH SCH (06:58)
--- NOTE | 2020-03-03 07:38 | PN ---
DATE OF SERVICE: 03/02/2020 The patient is postop day #1 from a laparoscopic treatment of a perforated appendicitis. Thus far, no major problems are noted. Hopper catheter came out this morning reasonably satisfactorily. Plan will be continuing on IV antibiotics today and advance up to regular diet as tolerated, and he will likely be ready for discharge home tomorrow. We will begin some bowel stimulation today as well. Alejo Sharpe MD /[id number]
[2020-03-03 07:55] VITALS: BP 99/57; PULSE 103
[2020-03-03] MEDS: Amoxicillin/Clavulanate K 875-125 MG Tab PO SCH (07:55)
[2020-03-03] MEDS: Hydrochlorothiazide 12.5 MG Cap PO SCH ×2 (07:57→08:06)
[2020-03-03] MEDS: Lisinopril 20 MG Tab PO SCH ×2 (07:58→08:07)
[2020-03-03] MEDS: Docusate Sodium 100 MG Cap PO SCH ×2 (07:58→08:06)
[2020-03-03] MEDS: Bisacodyl 5 MG Tab PO SCH (08:06)
--- NOTE | 2020-03-03 09:09 | DISCH ---
ADMISSION DIAGNOSIS: Abdominal pain. DISCHARGE DIAGNOSES: Laparoscopic appendectomy and drainage of periappendiceal abscess. POSTOPERATIVE DIAGNOSIS: Perforated appendicitis with periappendiceal abscess. HISTORY: Jose is a 59-year-old male who presented to the emergency room for abdominal pain and bloating. Once the abdominal pain localized to the right lower quadrant, he went to the emergency room and after preoperative evaluation and discussion of possible risks and possible complications, he wished to proceed with surgical procedure. HOSPITAL COURSE: Surgery was on 03/01/2020. He had no operative complications. On postoperative day #1, he was started on oral pain medication and oral antibiotic. He remained afebrile. Oral intake 2160, urine output 2870. HA drained 35 mL of a light pink drainage and he did have 1 bowel movement. He was able to be discharged to home on 03/03/2020 without any complications. PHYSICAL EXAMINATION: GENERAL: Jose Lees is a pleasant 59-year-old male. VITAL SIGNS: Height is 6 feet, weight is 230 pounds. TPR on 03/02/2020 at 2309, 98.8; 88; 16; blood pressure 116/69. HEENT: Negative. NECK: Supple. HEART: Regular rate and rhythm. LUNGS: Clear. ABDOMEN: Dressings dry and intact. Abdominal binder is on. EXTREMITIES: Without peripheral edema. DISPOSITION: Discharged to home. CONDITION: Stable and improving. FOLLOWUP: Appointment with Anju Cook PA-C, at [facility] on 03/10/2020 at 10 a.m. NEW PRESCRIPTIONS: 1. Augmentin 875 mg 1 tablet q.12 hours for 5 days. 2. Tylenol 1000 mg every 6 hours p.r.n. pain. 3. He is to resume his home medications: a. Albuterol inhaler 2 puffs every 4 hours p.r.n. shortness of breath. b. DuoNebs p.r.n. 4 times a day. c. Aspirin 81 mg daily. d. Symbicort 160/4.5 mcg 2 puffs twice daily. e. Flonase 2 sprays in each nostril twice daily. f. Lisinopril/hydrochlorothiazide 20/12.5 mg tablet 1 daily. g. Dulera inhaler 200/5 mcg 2 puffs inhalation twice daily. h. Multivitamin 1 daily. DIET: Usual diet as tolerated. Drink 8 to 10 glasses of water a day. ACTIVITY: No lifting greater than 10 pounds for 2 weeks. OTHER ACTIVITY: Walk 6 times daily inside your home. Driving: Do not drive for 1 week. Shower/bathing: May shower. DISCHARGE INSTRUCTIONS: Notify provider if any fever, increased pain, nausea, or vomiting. Keep site clean and dry. Wear abdominal binder for 2 weeks and then as tolerated. Use incentive spirometer 10 times every hour while awake for 1 week. /[id number]
[2020-03-03] MEDS: Benzocaine/Cetylpyridinium/Menthol Lozenge MUCMEM PRN (12:25)
--- NOTE | 2020-03-23 14:24 | OR ---
DATE OF PROCEDURE: 03/01/2020 SURGEON: Alejo Sharpe MD PREOPERATIVE DIAGNOSIS: Acute appendicitis. POSTOPERATIVE DIAGNOSIS: Perforated appendicitis with periappendiceal abscess. OPERATIVE PROCEDURE: Diagnostic laparoscopy with: 1. Appendectomy. 2. Drainage of periappendiceal abscess. INDICATION FOR PROCEDURE: This is a 59-year-old male presenting with a picture of acute appendicitis clinically and radiologically. Plan is to proceed with laparoscopy or necessary open appendectomy. Potential risks including bleeding, infection, leaks from GI tract closure lines, need for additional procedures based on the operative findings were gone over, and the patient wishes to proceed. DETAILS OF PROCEDURE: The patient was taken to the operating room. After general endotracheal anesthesia was induced, a Hopper catheter was inserted, and the abdomen prepped and draped. In the area 3 fingerbreadths superior and to the left of the umbilicus, a transverse incision was made and the peritoneal cavity entered under direct vision with an Optiview trocar inflated to 15 mmHg pressure of CO2. A 12 mm trocar was placed in the left lower quadrant as well as right upper quadrant and the lower right abdomen examined. As the surface of the omentum was peeled back, periappendiceal abscess was encountered. Cultures of this were obtained and that area then drained. The appendix was acutely inflamed with an area of probable microperforation. The mesoappendix was then freed up with Harmonic scalpel and the patient's appendix then divided with a NIKKIE purple load and delivered through the specimen retrieval bag and through the left lower quadrant trocar site. No contamination of abdominal wall per se was evident with removal of the specimen through the specimen bag approach. The area of dissection was then inspected and no bleeding or bile leaks were seen. The mesoappendix and appendiceal closure site were then reinforced with some fibrin sealant. A 5 mm trocar was then placed in the right flank and 10-Maori Sarath-Gomez drain placed across the area of the appendectomy stump and from there into the pelvis and the trocars were sequentially removed. The fascia at the 12 mm sites was closed with 0 Vicryl stitch and the skin at each incision with 4-0 Vicryl skin stitch which was also used to fix the drain. Prior to closure, bilateral transversus abdominis plane blocks were placed and the wounds were anesthetized with 1% lidocaine mixed with Marcaine as well. The patient tolerated the procedure well and was taken to the recovery room in satisfactory condition. Alejo Sharpe MD /[id number]
== END 2020-03-03 12:40 | disposition home or self-care (01) | DRG 225 ==
LOC: JP.ED 12:37 → JP.SDS 15:14 → JP.MS 17:14
PROVIDERS: ADMIT Surgery; ATTEND Surgery
PROC: 0W9G4ZZ Drainage of Peritoneal Cavity, Percutaneous Endoscopic Approach (ICD-10-PCS; principal; 2020-03-01)
PROC: 0DTJ4ZZ Resection of Appendix, Percutaneous Endoscopic Approach (ICD-10-PCS; principal; 2020-03-01)
PROC: 3E0234Z Introduction of Serum, Toxoid and Vaccine into Muscle, Percutaneous Approach (ICD-10-PCS; 2020-03-02)
DX: K35.33 Acute appendicitis with perforation, localized peritonitis, and gangrene, with abscess (principal); H54.7 Unspecified visual loss; H91.90 Unspecified hearing loss, unspecified ear; I10 Essential (primary) hypertension; J45.909 Unspecified asthma, uncomplicated; K21.9 Gastro-esophageal reflux disease without esophagitis; M19.90 Unspecified osteoarthritis, unspecified site; Z90.49 Acquired absence of other specified parts of digestive tract; Z79.899 Other long term (current) drug therapy; Z79.82 Long term (current) use of aspirin; Z98.890 Other specified postprocedural states; Z23 Encounter for immunization
CPT/HCPCS: 51702; 74177; 87070; 87075; 87077; 87186; 87205; 88304; 90732; 94640; 94762; 96365; 96375; 99285; 99285-25; A9270-GY; C9113; G0009; J0171; J0295; J0330; J1100; J1170; J2405; J2704; J2710; J2795; J3010; J3490; J7030; J7050; J7120; J7121; J7620-GY; Q9967; U0002

== ENCOUNTER 2020-10-26 06:17 | Inpatient (IN) | payer BC ==
[2020-10-26] MEDS ORDERED: Sodium Chloride 0.9% 10 ML Syringe FLUSH PRN (07:02)
[2020-10-26] MEDS ORDERED: Sodium Chloride 0.9% 1,000 ML IV STA (07:02)
--- NOTE | 2020-10-26 07:07 | EDM.PDOC ---
ED HPI GENERAL MEDICAL PROBLEM - General Chief Complaint: Abdominal Pain Stated Complaint: ABD PAIN Time Seen by Provider: 10/26/20 06:52 Source of Information: Reports: Patient, RN Notes Reviewed History Limitations: Reports: No Limitations - History of Present Illness INITIAL COMMENTS - FREE TEXT/NARRATIVE: 59-year-old gentleman presents emergency department day complaint of abdominal pain, he states it is just developed over the last 24 hours he has significant abdominal distention. no fevers still pas a small amount of gas, hx of appy and caty Abdomen Pain Score (Numeric/FACES): 8 - Related Data Allergies Allergy/AdvReac Type Severity Reaction Status Date / Time No Known Allergies Allergy Verified 03/01/20 13:28 Home Meds: Home Meds Acetaminophen [Tylenol] 325 mg PO Q4HR PRN 07/05/16 [History] Albuterol Sulfate [Proair Hfa] 2 puff IH Q4HR PRN 07/05/16 [History] Albuterol/Ipratropium [DuoNeb 3.0-0.5 MG/3 ML] 3 ml IH QID PRN 07/05/16 [History] Budesonide/Formoterol [Symbicort 160-4.5 MCG] 2 puff INH BID 07/05/16 [History] Fluticasone Propionate [Flonase] 2 spray NASBOTH BID 07/05/16 [History] Lisinopril/Hydrochlorothiazide [Lisinopril-Hctz 20-12.5 mg Tab] 1 tab PO DAILY 07/05/16 [History] Mometasone/Formoterol [Dulera 200-5 MCG] 2 puff IH BIDRT 08/04/16 [History] Aspirin [Halfprin] 81 mg PO DAILY 03/01/20 [History] Multivitamin [Multi-Vitamin Daily] 1 each PO DAILY 03/01/20 [History] Acetaminophen [Tylenol Extra Strength] 1,000 mg PO Q6H PRN tablet 03/03/20 [Rx] Azithromycin 1 tab PO DAILY 10/26/20 [History] predniSONE [Prednisone] 40 mg PO ASDIRECTED 10/26/20 [History] Past Medical History HEENT History: Reports: Hard of Hearing, Impaired Vision Other HEENT History: reading glasses Cardiovascular History: Reports: Hypertension Respiratory History: Reports: Asthma Gastrointestinal History: Reports: GERD Other Gastrointestinal History: "belching" Musculoskeletal History: Reports: Arthritis, Fracture - Infectious Disease History Infectious Disease History: Reports: Chicken Pox - Past Surgical History HEENT Surgical History: Reports: None Respiratory Surgical History: Reports: None GI Surgical History: Reports: Cholecystectomy, Colon, EGD, Kell Fundoplication Musculoskeletal Surgical History: Reports: Shoulder Surgery Other Musculoskeletal Surgeries/Procedures:: right shoulder surgery 20 or so years ago Social & Family History - Family History Family Medical History: No Pertinent Family History - Tobacco Use Tobacco Use Status *Q: Never Tobacco User - Caffeine Use Caffeine Use: Reports: Tea - Alcohol Use Days Per Week of Alcohol Use: 3 Number of Drinks Per Day: 3 Total Drinks Per Week: 9 - Recreational Drug Use Recreational Drug Use: No ED ROS GENERAL - Review of Systems Review Of Systems: See Below Constitutional: Reports: No Symptoms. Denies: Fever Respiratory: Reports: No Symptoms Cardiovascular: Reports: No Symptoms GI/Abdominal: Reports: Abdominal Pain, Flatus, Nausea. Denies: Constipation, Diarrhea, Vomiting : Reports: No Symptoms ED EXAM, GI/ABD - Physical Exam Exam: See Below Exam Limited By: No Limitations General Appearance: Alert, WD/WN, No Apparent Distress Respiratory/Chest: No Respiratory Distress, Lungs Clear, Normal Breath Sounds, No Accessory Muscle Use, Chest Non-Tender Cardiovascular: Regular Rate, Rhythm, No Murmur GI/Abdominal Exam: Soft, Distended, Tender Course - Vital Signs Last Recorded V/S: Last Vital Signs Temp 96.0 F L 10/26/20 06:26 Pulse 53 L 10/26/20 07:16 Resp 14 10/26/20 07:16 BP 161/89 H 10/26/20 07:16 Pulse Ox 97 10/26/20 07:16 - Orders/Labs/Meds Orders: Active Orders 24 hr Category Date Time Status Peripheral IV Care [RC] . DIRECTED Care 10/26/20 07:05 Active Abdomen 1V Upright [CR] Stat Exams 10/26/20 08:52 Ordered Abdomen Pelvis w Cont [CT] Urgent Exams 10/26/20 07:02 Taken Chest 1V Frontal [CR] Stat Exams 10/26/20 08:52 Ordered Sodium Chloride 0.9% [Normal Saline] 1,000 ml Med 10/26/20 07:02 Active IV .BOLUS Sodium Chloride 0.9% [Saline Flush] Med 10/26/20 07:02 Active 10 ml FLUSH ASDIRECTED PRN Nasogastric Orogastric Tube Insertion [OM.PC] Routine Oth 10/26/20 08:52 Ordered Peripheral IV Insertion Adult [OM.PC] Urgent Oth 10/26/20 07:02 Ordered Medication Orders Sodium Chloride (Normal Saline) 1,000 mls @ 500 mls/hr IV .BOLUS STA Stop: 10/26/20 09:01 Last Admin: 10/26/20 07:17 Dose: 500 mls/hr Documented by: TERRY Sodium Chloride (Sodium Chloride 0.9% 10 Ml Syringe) 10 ml FLUSH ASDIRECTED PRN PRN Reason: Keep Vein Open Last Admin: 10/26/20 07:17 Dose: 10 ml Documented by: TERRY Labs: Laboratory Tests 10/26/20 10/26/20 10/26/20 Range/Units 07:12 07:12 07:12 WBC 9.1 (4.5-11.0) K/uL RBC 4.89 (4.30-5.90) M/uL Hgb 15.0 (12.0-15.0) g/dL Hct 45.9 (40.0-54.0) % MCV 94 (80-98) fL MCH 31 (27-31) pg MCHC 33 (32-36) % Plt Count 282 (150-400) K/uL Neut % (Auto) 68.3 H (36-66) % Lymph % (Auto) 21.4 L (24-44) % Person % (Auto) 9.8 H (2-6) % Eos % (Auto) 0.3 L (2-4) % Baso % (Auto) 0.2 (0-1) % Sodium 141 (140-148) mmol/L Potassium 3.8 (3.6-5.2) mmol/L Chloride 103 (100-108) mmol/L Carbon Dioxide 29 (21-32) mmol/L Anion Gap 9.1 (5.0-14.0) mmol/L BUN 24 H (7-18) mg/dL Creatinine 0.8 (0.8-1.3) mg/dL Est Cr Clr Drug Dosing 107.78 mL/min Estimated GFR (MDRD) > 60 (>60) Glucose 110 H (74-106) mg/dL Lactic Acid 1.1 (0.4-2.0) mmol/L Calcium 8.8 (8.5-10.1) mg/dL Total Bilirubin 0.6 (0.2-1.0) mg/dL AST 20 (15-37) U/L ALT 39 (12-78) U/L Alkaline Phosphatase 53 (46-116) U/L Total Protein 7.0 (6.4-8.2) g/dL Albumin 3.3 L (3.4-5.0) g/dL Globulin 3.7 H (2.3-3.5) g/dL Albumin/Globulin Ratio 0.9 L (1.2-2.2) Lipase 38 L (73-393) U/L Meds: Medications Generic Name Dose Route Start Last Admin Trade Name Freq PRN Reason Stop Dose Admin Sodium Chloride 1,000 mls @ 500 mls/hr 10/26/20 07:02 10/26/20 07:17 Normal Saline IV 10/26/20 09:01 500 mls/hr .BOLUS STA Administration Sodium Chloride 10 ml 10/26/20 07:02 10/26/20 07:17 Sodium Chloride 0.9% 10 Ml Syringe FLUSH 10 ml ASDIRECTED PRN Administration Keep Vein Open Discontinued Medications Generic Name Dose Route Start Last Admin Trade Name Freq PRN Reason Stop Dose Admin Fentanyl 50 mcg 10/26/20 07:19 10/26/20 07:30 Fentanyl 100 Mcg/2 Ml Sdv IVPUSH 10/26/20 07:20 50 mcg ONETIME ONE Administration Sodium Chloride 85 mls @ 4 mls/sec 10/26/20 07:11 10/26/20 08:00 Normal Saline IV 10/26/20 07:12 4 mls/sec ASDIRECTED STA Administration Iopamidol 150 ml 10/26/20 07:11 10/26/20 07:59 Iopamidol 612 Mg/Ml 150 Ml Bottle IV 10/26/20 07:12 150 ml . DIRECTED STA Administration Ondansetron HCl 4 mg 10/26/20 07:19 10/26/20 07:29 Ondansetron 4 Mg/2 Ml Sdv IVPUSH 10/26/20 07:20 4 mg ONETIME ONE Administration Departure - Departure Time of Disposition: 08:55 Disposition: Admitted As Inpatient 65 Condition: Fair Clinical Impression: Partial small bowel obstruction - Discharge Information Referrals: PCP,None [Primary Care Provider] - Forms: ED Department Discharge Sepsis Event Note (ED) - Evaluation Sepsis Screening Result: No Definite Risk - Focused Exam Vital Signs: Vital Signs Temp Pulse Resp BP Pulse Ox 10/26/20 07:16 53 L 14 161/89 H 97 10/26/20 06:26 96.0 F L 69 16 154/97 H 96 - My Orders Last 24 Hours: My Active Orders 10/26/20 07:02 Abdomen Pelvis w Cont [CT] Urgent Sodium Chloride 0.9% [Normal Saline] 1,000 ml IV .BOLUS Sodium Chloride 0.9% [Saline Flush] 10 ml FLUSH ASDIRECTED PRN Peripheral IV Insertion Adult [OM.PC] Urgent 10/26/20 07:05 Peripheral IV Care [RC] . DIRECTED 10/26/20 08:52 Abdomen 1V Upright [CR] Stat Chest 1V Frontal [CR] Stat Nasogastric Orogastric Tube Insertion [OM.PC] Routine - Assessment/Plan Last 24 Hours: My Active Orders 10/26/20 07:02 Abdomen Pelvis w Cont [CT] Urgent Sodium Chloride 0.9% [Normal Saline] 1,000 ml IV .BOLUS Sodium Chloride 0.9% [Saline Flush] 10 ml FLUSH ASDIRECTED PRN Peripheral IV Insertion Adult [OM.PC] Urgent 10/26/20 07:05 Peripheral IV Care [RC] . DIRECTED 10/26/20 08:52 Abdomen 1V Upright [CR] Stat Chest 1V Frontal [CR] Stat Nasogastric Orogastric Tube Insertion [OM.PC] Routine Plan: Assessment Acuity = acute Site and laterality = partial small bowel obstruction Etiology = unknown Manifestations = abdominal pain and distention Location of injury = Home Lab values = CBC, CMP unremarkable CT scan describes a partial small bowel obstruction above Plan : Discussed case with hospitalist on-call at [phone] kindly agreed to come evaluate the patient emergency department for admission, NG tube placed in the emergency department This note was dictated using [employer] voice recognition software please call with any questions on syntax or grammar.
[2020-10-26] MEDS ORDERED: Iopamidol 612 MG/ML 150 ML Bottle IV STA (07:11)
[2020-10-26] MEDS ORDERED: Ondansetron 4 MG/2 ML SDV IVPUSH ONE (07:19)
[2020-10-26] MEDS ORDERED: fentaNYL 100 MCG/2 ML SDV IVPUSH ONE (07:19)
[2020-10-26] MEDS: NS + KCl 20mEq/L 1,000 ML IV SCH ×2 (09:48→18:08)
--- NOTE | 2020-10-26 09:55 | PCM.HP.2 ---
H&P History of Present Illness - General Date of Service: 10/26/20 Admit Problem/Dx: Admission Diagnosis/Problem Admission Diagnosis/Problem Small bowel obstruction due to adhesions Source of Information: Patient, Provider History Limitations: Reports: No Limitations - History of Present Illness Initial Comments - Free Text/Narative: CC: I had a knot in my stomach HPI: Jose presents to the emergency room today with about 48 hours of progressive abdominal distention, abdominal pain. Onset of symptoms was Tuesday morning, 2 days ago. Initially pain was mild and felt like a knot in the middle of his abdomen. He has had a steady increase in the pain to the point that it was severe and crampy. Belching seems to relieve the pain temporarily. He has not taken anything to make the pain better. No obvious trigger to make the pain worse but it has been steadily getting worse. No significant nausea or vomiting. Appetite has been declining and intake has been poor. He had some chills last night but has not had any fevers. Last bowel movement was yesterday but it was small. He is not passing much gas. No change in bladder habits. No shortness of breath. He does have a history of Kell fundoplication, cholecystectomy and appendectomy most recently. Work-up in the emergency room suggested a small bowel obstruction with transition point in the pelvis probably in the area of his previous appendectomy. He is feeling better after an NG tube has been placed. Labs are not remarkable. He will be admitted for hydration, NG tube drainage and symptomatic management. Abdomen Pain Score (Numeric/FACES): 4 - Related Data Allergies/Adverse Reactions: Allergies Allergy/AdvReac Type Severity Reaction Status Date / Time No Known Allergies Allergy Verified 03/01/20 13:28 Home Medications: Home Meds Albuterol Sulfate [Proair Hfa] 2 puff IH Q4HR PRN 07/05/16 [History] Albuterol/Ipratropium [DuoNeb 3.0-0.5 MG/3 ML] 3 ml IH QID PRN 07/05/16 [History] Budesonide/Formoterol [Symbicort 160-4.5 MCG] 2 puff INH BID 07/05/16 [History] Fluticasone Propionate [Flonase] 2 spray NASBOTH BID 07/05/16 [History] Lisinopril/Hydrochlorothiazide [Lisinopril-Hctz 20-12.5 mg Tab] 1 tab PO DAILY 07/05/16 [History] Mometasone/Formoterol [Dulera 200-5 MCG] 2 puff IH BIDRT 08/04/16 [History] Aspirin [Halfprin] 81 mg PO DAILY 03/01/20 [History] Multivitamin [Multi-Vitamin Daily] 1 each PO DAILY 03/01/20 [History] Acetaminophen [Tylenol Extra Strength] 1,000 mg PO Q6H PRN tablet 03/03/20 [Rx] Azithromycin 1 tab PO DAILY 10/26/20 [History] predniSONE [Prednisone] 40 mg PO ASDIRECTED 10/26/20 [History] Past Medical History HEENT History: Reports: Hard of Hearing, Impaired Vision Other HEENT History: reading glasses Cardiovascular History: Reports: Hypertension Respiratory History: Reports: Asthma Gastrointestinal History: Reports: GERD Other Gastrointestinal History: "belching" Musculoskeletal History: Reports: Arthritis, Fracture - Infectious Disease History Infectious Disease History: Reports: Chicken Pox - Past Surgical History HEENT Surgical History: Reports: None Respiratory Surgical History: Reports: None GI Surgical History: Reports: Cholecystectomy, Colon, EGD, Kell Fundoplication Musculoskeletal Surgical History: Reports: Shoulder Surgery Other Musculoskeletal Surgeries/Procedures:: right shoulder surgery 20 or so years ago Social & Family History - Family History Family Medical History: No Pertinent Family History - Tobacco Use Tobacco Use Status *Q: Never Tobacco User - Caffeine Use Caffeine Use: Reports: Tea - Alcohol Use Days Per Week of Alcohol Use: 3 Number of Drinks Per Day: 3 Total Drinks Per Week: 9 - Recreational Drug Use Recreational Drug Use: No H&P Review of Systems - Review of Systems: Review Of Systems: See Below Free Text/Narrative: A complete 12 point review of systems was obtained. Pertinent positives and negatives are noted in the history of present illness. All other systems were reviewed and were negative except as noted. Exam - Exam Exam: See Below - Vital Signs Vital Signs: Last Vital Signs Temp 35.6 C L 10/26/20 06:26 Pulse 52 L 10/26/20 09:13 Resp 16 10/26/20 09:13 BP 143/78 H 10/26/20 09:13 Pulse Ox 95 10/26/20 09:13 Weight: 106.8 kg - Exam Quality Assessment: No: Supplemental Oxygen General: Alert, Oriented, Cooperative. No: Mild Distress HEENT: Conjunctiva Clear, Mucosa Moist & [place], Other (NG left nare ) Neck: Supple, Trachea Midline Lungs: Clear to Auscultation, Normal Respiratory Effort Cardiovascular: Regular Rate, Regular Rhythm. No: Systolic Murmur GI/Abdominal Exam: Soft, Distended, Tender (mild suprapubic and epigastric ), Abnormal Bowel Sounds (hypoactive ) Extremities: No Pedal Edema. No: Increased Warmth Peripheral Pulses: 2+: Dorsalis Pedis (L), Dorsalis Pedis (R) Skin: Warm, Dry. No: Rash Neuro Extensive - Mental Status: Alert, Oriented x3, Nl Response to Commands Neuro Extensive - Motor, Sensory, Reflexes: No: Dysarthria, Abnormal Motor, Tremor Psychiatric: Alert, Normal Affect - Patient Data Lab Results Last 24 hrs: Laboratory Results - last 24 hr 10/26/20 10/26/20 10/26/20 Range/Units 07:12 07:12 07:12 WBC 9.1 (4.5-11.0) K/uL RBC 4.89 (4.30-5.90) M/uL Hgb 15.0 (12.0-15.0) g/dL Hct 45.9 (40.0-54.0) % MCV 94 (80-98) fL MCH 31 (27-31) pg MCHC 33 (32-36) % Plt Count 282 (150-400) K/uL Neut % (Auto) 68.3 H (36-66) % Lymph % (Auto) 21.4 L (24-44) % [place] % (Auto) 9.8 H (2-6) % Eos % (Auto) 0.3 L (2-4) % Baso % (Auto) 0.2 (0-1) % Sodium 141 (140-148) mmol/L Potassium 3.8 (3.6-5.2) mmol/L Chloride 103 (100-108) mmol/L Carbon Dioxide 29 (21-32) mmol/L Anion Gap 9.1 (5.0-14.0) mmol/L BUN 24 H (7-18) mg/dL Creatinine 0.8 (0.8-1.3) mg/dL Est Cr Clr Drug Dosing 107.78 mL/min Estimated GFR (MDRD) > 60 (>60) Glucose 110 H (74-106) mg/dL Lactic Acid 1.1 (0.4-2.0) mmol/L Calcium 8.8 (8.5-10.1) mg/dL Total Bilirubin 0.6 (0.2-1.0) mg/dL AST 20 (15-37) U/L ALT 39 (12-78) U/L Alkaline Phosphatase 53 (46-116) U/L Total Protein 7.0 (6.4-8.2) g/dL Albumin 3.3 L (3.4-5.0) g/dL Globulin 3.7 H (2.3-3.5) g/dL Albumin/Globulin Ratio 0.9 L (1.2-2.2) Lipase 38 L (73-393) U/L Result Diagrams: 10/26/20 07:12 10/26/20 07:12 Imaging Impressions Last 24 hrs: CT abd/pelvis-images personally reviewed-lower lungs clear. There are dilated loops of small bowel and fluid filled stomach. Transition point to decompressed small bowel in the pelvis. No other acute findings. Sepsis Event Note - Evaluation Sepsis Screening Result: No Definite Risk - Focused Exam Vital Signs: Vital Signs Temp Pulse Resp BP Pulse Ox 10/26/20 09:13 52 L 16 143/78 H 95 10/26/20 07:16 53 L 14 161/89 H 97 10/26/20 06:26 35.6 C L 69 16 154/97 H 96 *Q Meaningful Use (ADM) - VTE Risk Assess *Q Each Risk Factor Represents 1 Point: Obesity ( BMI > 25 kg/m2) Total Score 1 Point Risk Factors: 1 Each Risk Factor Represents 2 Points: Age 60 - 74 Years Total Score 2 Point Risk Factors: 2 Each Risk Factor Represents 3 Points: None Total Score 3 Point Risk Factors: 0 Each Risk Factor Represents 5 Points: None Total Score 5 Point Risk Factors: 0 Venous Thromboembolism Risk Factor Score *Q: 3 - Problem List (1) Partial small bowel obstruction SNOMED Code(s): 903637417 ICD Code: K56.600 - PARTIAL INTESTINAL OBSTRUCTION, UNSPECIFIED TO CAUSE Status: Acute Current Visit: Yes (2) Essential hypertension SNOMED Code(s): 00724335 ICD Code: I10 - ESSENTIAL (PRIMARY) HYPERTENSION Status: Chronic Current Visit: No Problem List Initiated/Reviewed/Updated: Yes Orders Last 24hrs: Active Orders 24 hr Category Date Time Status Patient Status Manage Transfer [TRANSFER] Routine ADT 10/26/20 09:45 Ordered Peripheral IV Care [RC] . DIRECTED Care 10/26/20 07:05 Active Abdomen 1V Upright [CR] Stat Exams 10/26/20 08:52 Ordered Abdomen Pelvis w Cont [CT] Urgent Exams 10/26/20 07:02 Taken Chest 1V Frontal [CR] Stat Exams 10/26/20 08:52 Ordered NS + KCl 20mEq/L [Normal Saline with 20 mEq KCl] 1,000 Med 10/26/20 09:45 Active ml IV ASDIRECTED Sodium Chloride 0.9% [Saline Flush] Med 10/26/20 07:02 Active 10 ml FLUSH ASDIRECTED PRN Nasogastric Orogastric Tube Insertion [OM.PC] Routine Oth 10/26/20 08:52 Ordered Peripheral IV Insertion Adult [OM.PC] Urgent Oth 10/26/20 07:02 Ordered Resuscitation Status Routine Resus Stat 10/26/20 09:47 Ordered Medication Orders Potassium Chloride/Sodium Chloride (Normal Saline With 20 Meq Kcl) 1,000 mls @ 125 mls/hr IV ASDIRECTED ALLYSON Last Admin: 10/26/20 09:48 Dose: 125 mls/hr Documented by: TERRY Sodium Chloride (Sodium Chloride 0.9% 10 Ml Syringe) 10 ml FLUSH ASDIRECTED PRN PRN Reason: Keep Vein Open Last Admin: 10/26/20 07:17 Dose: 10 ml Documented by: TERRY Assessment/Plan Comment:: ASSESSMENT AND PLAN - Small bowel obstruction-probably related to adhesions with previous surgeries as outlined in the HPI. Feeling better after NG tube was placed. No indication for emergent surgery. -NG tube decompression -IV fluids -Symptomatic management of pain and nausea -Flat and upright x-ray in the morning -Surgical consultation if worsening or not getting better Recent URI-recently prescribed azithromycin and steroids. Symptoms are much improved. He completed his antibiotics today. Planning 3 days of prednisone at 20 mg daily per outpatient prescription. -Prednisone 20 mg daily for 3 days starting Tuesday Essential hypertension-well controlled. -Continue home medications Maintenance issues - -DVT prophylaxis-mechanical -GI prophylaxis-PPI -Nutrition-nothing by mouth -Hopper catheter-not indicated CODE STATUS -full code Admission justification -this patient will be admitted for inpatient services and is medically appropriate meeting medical necessity for inpatient admission as outlined in my documentation. I reasonably expect the patient will require inpatient services that span a period time over 2 midnights. I reasonably expect this patient to be discharged or transferred within 96 hours after admission to the [facility]. Disposition -I anticipate discharge home after the hospital stay Primary care physician -YOAV Ortiz M.D. - Mortality Measure Prognosis:: Good
[2020-10-26] MEDS ORDERED: Ondansetron 4 MG/2 ML SDV IV PRN (11:18)
[2020-10-26] MEDS ORDERED: fentaNYL 100 MCG/2 ML SDV IVPUSH PRN (11:18)
[2020-10-26] MEDS ORDERED: LORazepam 2 MG/ML SDV IVPUSH PRN (11:18)
[2020-10-26] MEDS ORDERED: Acetaminophen 325 MG Tab PO PRN (11:18)
[2020-10-26] MEDS ORDERED: Albuterol/Ipratropium 3.0-0.5 MG/3 ML Neb Soln NEB PRN (11:18)
[2020-10-26] MEDS ORDERED: Melatonin 3 MG Tab PO PRN (11:18)
[2020-10-26] MEDS ORDERED: Ondansetron 4 MG Tab.DIS PO PRN (11:18)
[2020-10-26] MEDS ORDERED: Magnesium Hydroxide 400 MG/5 ML Susp 30 ML Cup PO PRN (11:18)
[2020-10-26] MEDS: Pantoprazole 40 MG Vial IV SCH (12:25)
[2020-10-27] MEDS: NS + KCl 20mEq/L 1,000 ML IV SCH ×3 (02:04→17:59)
--- NOTE | 2020-10-27 06:30 | CRLCT ---
Final Report: INDICATION: Abdominal pain and distention. Prior appendectomy and cholecystectomy as well as a Kell fundoplication. TECHNIQUE: CT of the abdomen and pelvis performed after the IV injection of 150 mL of Isovue-300. COMPARISON: CT 03/01/2020. FINDINGS: Multiple new mild to moderately dilated fluid and air-filled small bowel loops in the abdomen and mid and upper pelvis with associated mild dilatation of the duodenum and moderate dilatation of the stomach with air-fluid level. The transition point of the dilated to nondilated small bowel is in the upper pelvis on images 95-106. Findings consistent with a partial small bowel obstruction of moderate degree. Adhesion is the favored etiology for this partial small-bowel obstruction. Mild fluid and edema in the abdominal mesentery related to this process. Some of the small bowel loops have mild wall thickening consistent with edema or inflammation. The small bowel distal to the transition point is small in caliber. Mild prostatic enlargement. Colonic diverticulosis. Osteopenia. Interval changes of appendectomy. Mild fibrosis and atelectasis in the lung bases. Osteopenia. Small amounts of free fluid in the pelvis bilaterally new and small to moderate amounts of free fluid along the liver anterolaterally new. Cholecystectomy with upper limits normal mildly prominent common bile duct similar to prior exam. Trace amount of fluid along the spleen new. Postsurgical changes involving the stomach GE junction and along the baljit of the hemidiaphragm stable. Air-filled outpouchings along the anterior aspect of the GE junction likely postoperative and more apparent today. Stable moderately prominent cortical thinning and scarring involving the lateral aspect of the right kidney consistent with prior insult. Colonic diverticulosis. 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 Remainder negative. IMPRESSION: 1. New changes of moderate partial small bowel obstruction with multiple mild to moderately dilated mildly thick-walled edematous or inflamed small bowel loops leading down to a transition point in the upper pelvis where the small bowel transitions from dilated to small in caliber. Etiology of this small-bowel obstruction would be favored to be an adhesion. The duodenum and stomach are dilated with air-fluid levels in the stomach. Edema and fluid in the surrounding mesentery as well as small amounts of free fluid in the abdomen and pelvis and moderate amounts of free fluid along the liver all new and likely related to the small bowel pathology. No free intraperitoneal air to suggest perforation. Appendectomy and cholecystectomy changes stable. Postsurgical changes GE junction and baljit of the hemidiaphragm stable. 2. Moderate scarring and cortical thinning right lateral kidney stable. Other findings as above. Please note that all CT scans at this facility use dose modulation, iterative reconstruction, and/or weight-based dosing when appropriate to reduce radiation dose to as low as reasonably achievable. Dictated by Maxime Blank MD @ 10/26/2020 8:45:51 AM Signed by: Maxime Blank MD @10/26/2020 8:45:51 AM (Electronic Signature) MTDD
[2020-10-27] MEDS: Aspirin 81 MG Tab.EC PO SCH (09:25)
[2020-10-27] MEDS: Lisinopril 20 MG Tab PO SCH (09:26)
[2020-10-27] MEDS: Hydrochlorothiazide 12.5 MG Cap PO SCH (09:26)
[2020-10-27] MEDS: predniSONE 20 MG Tab PO SCH (09:28)
--- NOTE | 2020-10-27 10:06 | CR ---
CHEST: Portable 10/26/2020 at 10:11 AM CLINICAL HISTORY:NG tube placement COMPARISON:None FINDINGS: Lungs are clear. Heart size and pulmonary vascularity are normal. There is an NG tube. Tip is in the antrum of the stomach. Impression: No acute pulmonary process NG tube in stomach
--- NOTE | 2020-10-27 10:25 | CR ---
Abdomen 2V AP Flat Upright CLINICAL HISTORY: Follow-up obstruction FINDINGS: There is an NG tube in the distal aspect of the stomach near the pylorus. There is a dilated loop of small bowel upper abdomen with air-fluid level. There is gas and feces throughout the colon. No free air is seen. IMPRESSION: NG tube placement Small bowel distention. The amount of air is diminished slightly since the prior day's CT
[2020-10-27] MEDS: Pantoprazole 40 MG Vial IV SCH (12:23)
--- NOTE | 2020-10-27 14:36 | PCM.PN ---
- General Info Date of Service: 10/27/20 Admission Dx/Problem (Free Text): Admission Diagnosis/Problem Admission Diagnosis/Problem Small bowel obstruction due to adhesions Subjective Update: Mr. Lees had no events overnight last night. He is feeling better and denies abdominal pain, he did admit to cramping discomfort followed by flatulence earlier. The NG was in place and clamped on my first visit and hooked to suction on my second visit. It was draining mucus-like fluid that is clear and brown. He has been up and walking today and has had a good amount of flatulence associated. He denies any other complaints. He has ice chips available to moisten his mouth but he has not been using them. Functional Status: Reports: Pain Controlled, Ambulating. Denies: Tolerating Diet - Review of Systems General: Reports: No Symptoms. Denies: Weakness, Appetite HEENT: Reports: Sore Throat, Other (nare with NG is mildly irritated) Pulmonary: Reports: No Symptoms Cardiovascular: Reports: No Symptoms Gastrointestinal: Reports: Flatus. Denies: Abdominal Pain, Nausea, Vomiting Genitourinary: Reports: No Symptoms Musculoskeletal: Reports: No Symptoms Neurological: Reports: No Symptoms. Denies: Syncope, Difficulty Walking, Weakness, Gait Disturbance - Patient Data Vitals - Most Recent: Last Vital Signs Temp 98.0 F 10/27/20 11:00 Pulse 73 10/27/20 11:00 Resp 16 10/27/20 11:00 BP 126/70 10/27/20 11:00 Pulse Ox 95 10/27/20 11:00 Weight - Most Recent: 235 lb 7.259 oz I&O - Last 24 Hours: Intake & Output 10/26/20 10/27/20 10/27/20 22:59 06:59 14:59 Intake Total 1000 2420 Output Total 1100 250 300 Balance -100 2170 -300 Lab Results Last 24 Hours: Laboratory Results - last 24 hr 10/27/20 10/27/20 Range/Units 04:10 04:10 WBC 8.2 (4.5-11.0) K/uL RBC 4.53 (4.30-5.90) M/uL Hgb 14.1 (12.0-15.0) g/dL Hct 43.2 (40.0-54.0) % MCV 95 (80-98) fL MCH 31 (27-31) pg MCHC 33 (32-36) % Plt Count 269 (150-400) K/uL Sodium 140 (140-148) mmol/L Potassium 3.9 (3.6-5.2) mmol/L Chloride 105 (100-108) mmol/L Carbon Dioxide 27 (21-32) mmol/L Anion Gap 8.0 (5.0-14.0) mmol/L BUN 16 (7-18) mg/dL Creatinine 0.8 (0.8-1.3) mg/dL Est Cr Clr Drug Dosing 107.78 mL/min Estimated GFR (MDRD) > 60 (>60) Glucose 86 (74-106) mg/dL Calcium 8.0 L (8.5-10.1) mg/dL Magnesium 2.0 (1.8-2.4) mg/dL Med Orders - Current: Current Medications Acetaminophen (Acetaminophen 325 Mg Tab) 650 mg PO Q4H PRN PRN Reason: Pain (Mild 1-3)/fever Albuterol/Ipratropium (Albuterol/Ipratropium 3.0-0.5 Mg/3 Ml Neb Soln) 3 ml NEB QID PRN PRN Reason: Shortness of Breath Aspirin (Aspirin 81 Mg Tab.Ec) 81 mg PO DAILY [facility] Last Admin: 10/27/20 09:25 Dose: 81 mg Documented by: Fentanyl (Fentanyl 100 Mcg/2 Ml Sdv) 25 mcg IVPUSH Q2H PRN PRN Reason: Pain Hydrochlorothiazide (Hydrochlorothiazide 12.5 Mg Cap) 12.5 mg PO DAILY [facility] Last Admin: 10/27/20 09:26 Dose: 12.5 mg Documented by: Potassium Chloride/Sodium Chloride (Normal Saline With 20 Meq Kcl) 1,000 mls @ 125 mls/hr IV ASDIRECTED [facility] Last Admin: 10/27/20 09:47 Dose: 125 mls/hr Documented by: Lisinopril (Lisinopril 20 Mg Tab) 20 mg PO DAILY [facility] Last Admin: 10/27/20 09:26 Dose: 20 mg Documented by: Lorazepam (Lorazepam 2 Mg/Ml Sdv) 0.5 mg IVPUSH Q4H PRN PRN Reason: Nausea/Vomiting Magnesium Hydroxide (Magnesium Hydroxide 400 Mg/5 Ml Susp 30 Ml Cup) 30 ml PO Q 12H PRN PRN Reason: Constipation Melatonin (Melatonin 3 Mg Tab) 9 mg PO BEDTIME PRN PRN Reason: Sleep Ondansetron HCl (Ondansetron 4 Mg/2 Ml Sdv) 4 mg IV Q6H PRN PRN Reason: Nausea/Vomiting Ondansetron HCl (Ondansetron 4 Mg Tab.Dis) 4 mg PO Q6H PRN PRN Reason: Nausea able to take PO Pantoprazole Sodium (Pantoprazole 40 Mg Vial) 40 mg IV Q24H [facility] Last Admin: 10/27/20 12:23 Dose: 40 mg Documented by: Prednisone (Prednisone 20 Mg Tab) 20 mg PO DAILY [facility] Stop: 10/29/20 09:01 Last Admin: 10/27/20 09:28 Dose: 20 mg Documented by: Senna/Docusate Sodium (Docusate Sodium/Sennosides 50-8.6 Mg Tab) 1 tab PO BID PRN PRN Reason: Constipation Sodium Chloride (Sodium Chloride 0.9% 10 Ml Syringe) 10 ml FLUSH ASDIRECTED PRN PRN Reason: Keep Vein Open Last Admin: 10/26/20 07:17 Dose: 10 ml Documented by: Discontinued Medications Fentanyl (Fentanyl 100 Mcg/2 Ml Sdv) 50 mcg IVPUSH ONETIME ONE Stop: 10/26/20 07:20 Last Admin: 10/26/20 07:30 Dose: 50 mcg Documented by: Sodium Chloride (Normal Saline) 1,000 mls @ 500 mls/hr IV .BOLUS STA Stop: 10/26/20 09:01 Last Admin: 10/26/20 07:17 Dose: 500 mls/hr Documented by: Sodium Chloride (Normal Saline) 85 mls @ 4 mls/sec IV ASDIRECTED [facility] Stop: 10/26/20 07:12 Last Admin: 10/26/20 08:00 Dose: 4 mls/sec Documented by: Iopamidol (Iopamidol 612 Mg/Ml 150 Ml Bottle) 150 ml IV . DIRECTED [facility]A Stop: 10/26/20 07:12 Last Admin: 10/26/20 07:59 Dose: 150 ml Documented by: Ondansetron HCl (Ondansetron 4 Mg/2 Ml Sdv) 4 mg IVPUSH ONETIME ONE Stop: 10/26/20 07:20 Last Admin: 10/26/20 07:29 Dose: 4 mg Documented by: - Exam Quality Assessment: No: Supplemental Oxygen, Central Line/PICC, Urine Catheter, DVT Prophylaxis (pt. is ambulating multiple times daily) General: Alert, Oriented, Cooperative, No Acute Distress HEENT: Mucous Membr. Moist/[place], Other (NG in place and connected to suction) Lungs: Clear to Auscultation, Normal Respiratory Effort Cardiovascular: Regular Rate, Regular Rhythm. No: Murmurs GI/Abdominal Exam: Soft, Non-Tender, No Organomegaly, No Distention, No Abnormal Bruit, Abnormal Bowel Sounds (decreased) Extremities: Normal Inspection, Non-Tender, No Pedal Edema Peripheral Pulses: 3+: Radial (R) Skin: Warm, Dry, Intact Neurological: No New Focal Deficit Psy/Mental Status: Alert, Normal Affect, Normal Mood - Patient Data Lab Results Last 24 hrs: Laboratory Results - last 24 hr 10/27/20 10/27/20 Range/Units 04:10 04:10 WBC 8.2 (4.5-11.0) K/uL RBC 4.53 (4.30-5.90) M/uL Hgb 14.1 (12.0-15.0) g/dL Hct 43.2 (40.0-54.0) % MCV 95 (80-98) fL MCH 31 (27-31) pg MCHC 33 (32-36) % Plt Count 269 (150-400) K/uL Sodium 140 (140-148) mmol/L Potassium 3.9 (3.6-5.2) mmol/L Chloride 105 (100-108) mmol/L Carbon Dioxide 27 (21-32) mmol/L Anion Gap 8.0 (5.0-14.0) mmol/L BUN 16 (7-18) mg/dL Creatinine 0.8 (0.8-1.3) mg/dL Est Cr Clr Drug Dosing 107.78 mL/min Estimated GFR (MDRD) > 60 (>60) Glucose 86 (74-106) mg/dL Calcium 8.0 L (8.5-10.1) mg/dL Magnesium 2.0 (1.8-2.4) mg/dL Result Diagrams: 10/27/20 04:10 10/27/20 04:10 Sepsis Event Note - Evaluation Sepsis Screening Result: No Definite Risk - Focused Exam Vital Signs: Vital Signs Temp Pulse Resp BP BP Pulse Ox 10/27/20 11:00 98.0 F 73 16 126/70 95 10/27/20 09:26 111/75 10/27/20 07:00 98.6 F 73 16 143/82 H 95 10/27/20 04:00 98.6 F 74 18 113/71 95 - Problem List Review Problem List Initiated/Reviewed/Updated: Yes - Plan Plan:: ASSESSMENT AND PLAN - Small Bowel Obstruction-probably related to adhesions with previous surgeries -No indication for emergent surgery -No bowel movement, flatulence -NG tube decompression- to continue overnight -IV fluids NS + 20 mEq K at 125ml/hr -Symptomatic management of pain and nausea- well controlled -AM X-ray 10/27 showed area of distended small bowel and air-fluid level -Surgical consultation if worsening or not getting better- not indicated at this time Recent URI-recently prescribed azithromycin and steroids. -Symptoms are much improved, He completed his antibiotics 10/26 -Planning 3 days of prednisone at 20 mg daily per outpatient prescription -Prednisone 20 mg daily for 3 days started today 10/27 Essential hypertension-well controlled. -Continue home medications Maintenance issues: -DVT prophylaxis-pt is ambulatory, SCDs -GI prophylaxis-PPI -Nutrition-nothing by mouth -Hopper catheter-not indicated CODE STATUS -full code Admission justification -this patient will be admitted for inpatient services and is medically appropriate meeting medical necessity for inpatient admission as outlined in my documentation. I reasonably expect the patient will require inpatient services that span a period time over 2 midnights. I reasonably expect this patient to be discharged or transferred within 96 hours [facility] Disposition -I anticipate discharge home after the hospital stay. Will maintain NG tube overnight attached to suction. Will await BM, possible follow up with repeat abd XR if symptoms worsen. Primary care physician -YOAV Ortiz DO
[2020-10-28] MEDS: NS + KCl 20mEq/L 1,000 ML IV SCH ×2 (01:57→12:11)
[2020-10-28] MEDS: Aspirin 81 MG Tab.EC PO SCH (09:03)
[2020-10-28] MEDS: Lisinopril 20 MG Tab PO SCH (09:03)
[2020-10-28] MEDS: Hydrochlorothiazide 12.5 MG Cap PO SCH (09:03)
[2020-10-28] MEDS: predniSONE 20 MG Tab PO SCH (09:05)
--- NOTE | 2020-10-28 09:23 | CR ---
Abdomen 2V AP Flat Upright CLINICAL HISTORY: Obstruction FINDINGS: NG tube is in the pyloric channel or proximal duodenum. There is a decrease in small bowel distention. There is some gas and feces throughout the colon IMPRESSION: Decreased distention Progression of gas into the right and transverse colon
[2020-10-28] MEDS: Pantoprazole 40 MG Vial IV SCH (12:12)
--- NOTE | 2020-10-28 12:40 | PCM.PN ---
- General Info Date of Service: 10/28/20 Admission Dx/Problem (Free Text): Admission Diagnosis/Problem Admission Diagnosis/Problem Small bowel obstruction due to adhesions Subjective Update: Hilda Naqvi had no events overnight. He had a good bowel movement this morning. His abdominal x-ray shows less distention and movement of the gas patterns. He is feeling significantly better and would look like to try a liquid diet for lunch. He is feeling so well he asked if he would be able to go home, it was expressed to him that he would need to be able to eat before he goes. He was explained that we will try liquids at lunch, soft foods at dinner, and solid foods at breakfast. If he is able to tolerate this increasing regimen then he will be ready to go home. I did explain to him that because this has happened he is at increased risk of bowel obstruction in the future. He had waited several days in pain before coming in and I expressed that it would be important if he was experiencing severe abdominal pain to err on the side of caution and come in sooner next time. He denies headache, congestion, , palpitations, bowel pain, and any other type of pain. He admits that the left nare is irritated from the NG tube. The NG tube was removed today as he is having bowel movements. He continues to take walks around the floor and is doing great with ambulation. He denies any other complaints. He asked about the use of fiber. He is a meat and potatoes kind of karri and I suggested that fiber could be useful in his diet, suggested Metamucil daily or increasing the amount of fruits and vegetables in his diet to get fiber naturally. He also ask ed about stool softeners. I recommended docusate as needed for hard stools but not to be taken daily. Functional Status: Reports: Pain Controlled, Tolerating Diet, Ambulating, Urinating - Review of Systems General: Reports: Appetite. Denies: Weakness HEENT: Reports: Other (left nare irritation). Denies: Headaches, Sinus Congestion, Sore Throat Cardiovascular: Denies: Chest Pain, Palpitations, Edema Gastrointestinal: Denies: Abdominal Pain, Decreased Appetite, Nausea, Vomiting Genitourinary: Denies: Dysuria Musculoskeletal: Reports: No Symptoms Skin: Reports: No Symptoms Neurological: Reports: No Symptoms - Patient Data Vitals - Most Recent: Last Vital Signs Temp 98.7 F 06/22/21 11:00 Pulse 78 10/28/20 11:00 Resp 16 10/28/20 11:00 BP 135/75 10/28/20 11:00 Pulse Ox 96 10/28/20 11:00 Weight - Most Recent: 235 lb 7.259 oz I&O - Last 24 Hours: Intake & Output 10/27/20 10/28/20 10/28/20 22:59 06:59 14:59 Intake Total 1531 1443 Output Total 777 590 275 Balance 756 853 -275 Lab Results Last 24 Hours: Laboratory Results - last 24 hr 10/28/20 Range/Units 04:05 Sodium 139 L (140-148) mmol/L Potassium 4.1 (3.6-5.2) mmol/L Chloride 103 (100-108) mmol/L Carbon Dioxide 25 (21-32) mmol/L Anion Gap 15.1 H (5.0-14.0) mmol/L BUN 18 (7-18) mg/dL Creatinine 0.8 (0.8-1.3) mg/dL Est Cr Clr Drug Dosing 107.93 mL/min Estimated GFR (MDRD) > 60 (>60) Glucose 70 L (74-106) mg/dL Calcium 7.8 L (8.5-10.1) mg/dL Med Orders - Current: Current Medications Acetaminophen (Acetaminophen 325 Mg Tab) 650 mg PO Q4H PRN PRN Reason: Pain (Mild 1-3)/fever Albuterol/Ipratropium (Albuterol/Ipratropium 3.0-0.5 Mg/3 Ml Neb Soln) 3 ml NEB QID PRN PRN Reason: Shortness of Breath Aspirin (Aspirin 81 Mg Tab.Ec) 81 mg PO DAILY [facility] Last Admin: 10/28/20 09:03 Dose: 81 mg Documented by: Fentanyl (Fentanyl 100 Mcg/2 Ml Sdv) 25 mcg IVPUSH Q2H PRN PRN Reason: Pain Hydrochlorothiazide (Hydrochlorothiazide 12.5 Mg Cap) 12.5 mg PO DAILY [facility] Last Admin: 10/28/20 09:03 Dose: 12.5 mg Documented by: Potassium Chloride/Sodium Chloride (Normal Saline With 20 Meq Kcl) 1,000 mls @ 125 mls/hr IV ASDIRECTED [facility] Last Admin: 10/28/20 12:11 Dose: 125 mls/hr Documented by: Lisinopril (Lisinopril 20 Mg Tab) 20 mg PO DAILY [facility] Last Admin: 10/28/20 09:03 Dose: 20 mg Documented by: Lorazepam (Lorazepam 2 Mg/Ml Sdv) 0.5 mg IVPUSH Q4H PRN PRN Reason: Nausea/Vomiting Magnesium Hydroxide (Magnesium Hydroxide 400 Mg/5 Ml Susp 30 Ml Cup) 30 ml PO Q12H PRN PRN Reason: Constipation Melatonin (Melatonin 3 Mg Tab) 9 mg PO BEDTIME PRN PRN Reason: Sleep Ondansetron HCl (Ondansetron 4 Mg/2 Ml Sdv) 4 mg IV Q6H PRN PRN Reason: Nausea/Vomiting Ondansetron HCl (Ondansetron 4 Mg Tab.Dis) 4 mg PO Q6H PRN PRN Reason: Nausea able to take PO Pantoprazole Sodium (Pantoprazole 40 Mg Vial) 40 mg IV Q24H [facility] Last Admin: 10/28/20 12:12 Dose: 40 mg Documented by: Prednisone (Prednisone 20 Mg Tab) 20 mg PO DAILY [facility] Stop: 10/29/20 09:01 Last Admin: 10/28/20 09:05 Dose: 20 mg Documented by: Senna/Docusate Sodium (Docusate Sodium/Sennosides 50-8.6 Mg Tab) 1 tab PO BID PRN PRN Reason: Constipation Sodium Chloride (Sodium Chloride 0.9% 10 Ml Syringe) 10 ml FLUSH ASDIRECTED PRN PRN Reason: Keep Vein Open Last Admin: 10/26/20 07:17 Dose: 10 ml Documented by: Discontinued Medications Fentanyl (Fentanyl 100 Mcg/2 Ml Sdv) 50 mcg IVPUSH ONETIME ONE Stop: 10/26/20 07:20 Last Admin: 10/26/20 07:30 Dose: 50 mcg Documented by: Sodium Chloride (Normal Saline) 1,000 mls @ 500 mls/hr IV .BOLUS STA Stop: 10/26/20 09:01 Last Admin: 10/26/20 07:17 Dose: 500 mls/hr Documented by: Sodium Chloride (Normal Saline) 85 mls @ 4 mls/sec IV ASDIRECTED [facility] Stop: 10/26/20 07:12 Last Admin: 10/26/20 08:00 Dose: 4 mls/sec Documented by: Iopamidol (Iopamidol 612 Mg/Ml 150 Ml Bottle) 150 ml IV . DIRECTED [facility] Stop: 10/26/20 07:12 Last Admin: 10/26/20 07:59 Dose: 150 ml Documented by: Ondansetron HCl (Ondansetron 4 Mg/2 Ml Sdv) 4 mg IVPUSH ONETIME ONE Stop: 10/26/20 07:20 Last Admin: 10/26/20 07:29 Dose: 4 mg Documented by: - Exam Quality Assessment: DVT Prophylaxis General: Alert, Oriented, Cooperative, No Acute Distress HEENT: Pupils Equal, EOMI, Mucous Membr. Moist/[place] Lungs: Clear to Auscultation, Normal Respiratory Effort Cardiovascular: Regular Rate, Regular Rhythm GI/Abdominal Exam: Normal Bowel Sounds, Soft, Non-Tender, No Distention Extremities: Normal Inspection, Non-Tender, No Pedal Edema Skin: Warm, Dry, Intact Neurological: No New Focal Deficit Psy/Mental Status: Alert, Normal Affect, Normal Mood - Patient Data Lab Results Last 24 hrs: Laboratory Results - last 24 hr 10/28/20 Range/Units 04:05 Sodium 139 L (140-148) mmol/L Potassium 4.1 (3.6-5.2) mmol/L Chloride 103 (100-108) mmol/L Carbon Dioxide 25 (21-32) mmol/L Anion Gap 15.1 H (5.0-14.0) mmol/L BUN 18 (7-18) mg/dL Creatinine 0.8 (0.8-1.3) mg/dL Est Cr Clr Drug Dosing 107.93 mL/min Estimated GFR (MDRD) > 60 (>60) Glucose 70 L (74-106) mg/dL Calcium 7.8 L (8.5-10.1) mg/dL Result Diagrams: 10/27/20 04:10 10/28/20 04:05 Sepsis Event Note - Evaluation Sepsis Screening Result: No Definite Risk - Focused Exam Vital Signs: Vital Signs Temp Pulse Resp BP BP Pulse Ox 10/28/20 11:00 98.7 F 78 16 135/75 96 10/28/20 09:03 123/73 10/28/20 07:26 99.0 F 65 16 128/69 95 10/28/20 04:00 97.8 F 73 18 125/76 95 - Problem List Review Problem List Initiated/Reviewed/Updated: Yes - My Orders Last 24 Hours: My Active Orders 10/28/20 Lunch Clear Liquid Diet [DIET] - Plan Plan:: ASSESSMENT AND PLAN - Small Bowel Obstruction-probably related to adhesions with previous surgeries -No indication for emergent surgery -Had good bowel movement this morning -NG tube was removed this morning -IV fluids NS + 20 mEq K at 125ml/hr-we will continue fluids until tolerating diet starting with full liquid diet -Symptomatic management of pain and nausea- well controlled -AM XR 10/27 showed area of distended small bowel and air-fluid level -AM XR 10/28 decreased distention, movement of gas patterns -Surgical consultation if worsening or not getting better- not indicated at this time Recent URI-recently prescribed azithromycin and steroids. -Symptoms are much improved, He completed his antibiotics 10/26 -Planning 3 days of prednisone at 20 mg daily per outpatient prescription -Prednisone 20 mg daily for 3 days started today 10/27 -Counseled to either keep or properly dispose of medication he did not use from home Essential hypertension-well controlled. -Continue home medications Maintenance issues: -DVT prophylaxis-pt is ambulatory, SCDs -GI prophylaxis-PPI -Nutrition-nothing by mouth -Hopper catheter-not indicated CODE STATUS -full code Admission justification -this patient will be admitted for inpatient services and is medically appropriate meeting medical necessity for inpatient admission as outlined in my documentation. I reasonably expect the patient will require inpatient services that span a period time over 2 midnights. I reasonably expect this patient to be discharged or transferred within 96 hours [facility] Disposition -I anticipate discharge home after the hospital stay. He will try a full liquid diet at lunch today, then progressed to a soft diet at dinner, then progressed to a solids diet for breakfast tomorrow. If he is able to tolerate this escalation in diet then he will be ready to go home tomorrow. As soon as he has tolerated the liquids at lunch today then we will discontinue the IV fluids. He was counseled on future risks of bowel obstruction. He was also counseled on the use of fiber and stool softeners upon discharge. Primary care physician -YOAV Ortiz DO
[2020-10-29 07:14] VITALS: BP 114/71; PULSE 86
[2020-10-29] MEDS: Lisinopril 20 MG Tab PO SCH (08:28)
[2020-10-29] MEDS: predniSONE 20 MG Tab PO SCH (08:28)
[2020-10-29] MEDS: Hydrochlorothiazide 12.5 MG Cap PO SCH (08:28)
[2020-10-29] MEDS: Aspirin 81 MG Tab.EC PO SCH (08:28)
[2020-10-29] MEDS: Pantoprazole 40 MG Vial IV SCH (11:37)
--- NOTE | 2020-10-29 16:07 | PCM.DCSUM1 ---
Discharge Summary - Hospital Course Free Text/Narrative:: Mr. Lees is a 59-year-old white male who presented for abdominal pain and was found to have a small bowel obstruction on x-ray. He does have an extensive history of abdominal surgeries including Niesen fundoplication, cholecystectomy, and appendectomy. He had gastric decompression with a nasogastric tube, he was given fluids, and his pain was controlled. Serial abdominal x-rays were taken which showed gradual improvement of signs of bowel obstruction. Patient then had a bowel movement and was started on a diet which he tolerated as it escalated from liquids to soft foods to solids. He was also treated for a recent URI with steroids while he was here. He was treated with home medications for hypertension. Diagnosis: Stroke: No Modified Filomena Scale: No Signif.Disability Despite Sympt.Able to Carry Out Usual Act./Duties Modified [place] Scale Score: 1 - Discharge Data Discharge Date: 10/29/20 Discharge Disposition: Home, Self-Care 01 Condition: Good - Referral to Home Health Primary Care Physician: PCP None - Discharge Diagnosis/Problem(s) (1) Partial small bowel obstruction SNOMED Code(s): 603908996 ICD Code: K56.600 - PARTIAL INTESTINAL OBSTRUCTION, UNSPECIFIED TO CAUSE Status: Acute - Patient Instructions Diet: Heart Healthy Diet, Usual Diet as Tolerated Activity, Other: Return to work after 10/31/2020 Driving: [place] [address] Today - Discharge Plan Home Medications: Home Meds Albuterol Sulfate [Proair Hfa] 2 puff IH Q4HR PRN 07/05/16 [History] Budesonide/Formoterol [Symbicort 160-4.5 MCG] 2 puff INH BID 07/05/16 [History] Fluticasone Propionate [Flonase] 2 spray NASBOTH BID 07/05/16 [History] Lisinopril/Hydrochlorothiazide [Lisinopril-Hctz 20-12.5 mg Tab] 1 tab PO DAILY 07/05/16 [History] Mometasone/Formoterol [Dulera 200-5 MCG] 2 puff IH BIDRT 08/04/16 [History] Aspirin [Halfprin] 81 mg PO DAILY 03/01/20 [History] Multivitamin [Multi-Vitamin Daily] 1 each PO DAILY 03/01/20 [History] Acetaminophen [Tylenol Extra Strength] 1,000 mg PO Q6H PRN tablet 03/03/20 [Rx] Azithromycin 1 tab PO DAILY 10/26/20 [History] Referrals: Shin Rust NP [Nurse Practitioner] - 11/05/20 3:00 pm (Your appointment is at the [facility]. ) - Discharge Summary/Plan Comment DC Time >30 min.: No Discharge Summary/Plan Comment: Mr. Lees was counseled on the risk of recurrence of small bowel obstruction and his risk associated with his prior surgeries and adhesions. He was advised that if he had severe abdominal pain in the future to err on the side of caution and come in sooner than later as he could have a recurrence. Otherwise he is going home on his home medications. He does not need assistance at home. He was counseled on taking stool softeners if needed at home and taking a fiber supplement. - Patient Data Vitals - Most Recent: Last Vital Signs Temp 97.7 F 10/29/20 06:00 Pulse 86 10/29/20 06:00 Resp 15 10/29/20 06:00 BP 114/71 10/29/20 08:28 Pulse Ox 95 10/29/20 06:00 Weight - Most Recent: 235 lb 7.259 oz I&O - Last 24 hours: Intake & Output 10/29/20 10/29/20 10/29/20 06:59 14:59 22:59 Intake Total 142 Balance 142 Lab Results - Last 24 hrs: Laboratory Results - last 24 hr 10/29/20 10/29/20 Range/Units 04:20 04:20 WBC 8.4 (4.5-11.0) K/uL RBC 4.55 (4.30-5.90) M/uL Hgb 14.4 (12.0-15.0) g/dL Hct 42.0 (40.0-54.0) % MCV 92 (80-98) fL MCH 32 H (27-31) pg MCHC 34 (32-36) % Plt Count 272 (150-400) K/uL Sodium 140 (140-148) mmol/L Potassium 3.5 L (3.6-5.2) mmol/L Chloride 104 (100-108) mmol/L Carbon Dioxide 28 (21-32) mmol/L Anion Gap 11.5 (5.0-14.0) mmol/L BUN 14 (7-18) mg/dL Creatinine 0.9 (0.8-1.3) mg/dL Est Cr Clr Drug Dosing 95.94 mL/min Estimated GFR (MDRD) > 60 (>60) Glucose 90 (74-106) mg/dL Calcium 8.3 L (8.5-10.1) mg/dL Med Orders - Current: Current Medications Discontinued Medications Acetaminophen (Acetaminophen 325 Mg Tab) 650 mg PO Q4H PRN PRN Reason: Pain (Mild 1-3)/fever Albuterol/Ipratropium (Albuterol/Ipratropium 3.0-0.5 Mg/3 Ml Neb Soln) 3 ml NEB QID PRN PRN Reason: Shortness of Breath Aspirin (Aspirin 81 Mg Tab.Ec) 81 mg PO DAILY [facility] Last Admin: 10/29/20 08:28 Dose: 81 mg Documented by: Fentanyl (Fentanyl 100 Mcg/2 Ml Sdv) 50 mcg IVPUSH ONETIME ONE Stop: 10/26/20 07:20 Last Admin: 10/26/20 07:30 Dose: 50 mcg Documented by: Fentanyl (Fentanyl 100 Mcg/2 Ml Sdv) 25 mcg IVPUSH Q2H PRN PRN Reason: Pain Hydrochlorothiazide (Hydrochlorothiazide 12.5 Mg Cap) 12.5 mg PO DAILY [facility] Last Admin: 10/29/20 08:28 Dose: 12.5 mg Documented by: Sodium Chloride (Normal Saline) 1,000 mls @ 500 mls/hr IV .BOLUS STA Stop: 10/26/20 09:01 Last Admin: 10/26/20 07:17 Dose: 500 mls/hr Documented by: Sodium Chloride (Normal Saline) 85 mls @ 4 mls/sec IV ASDIRECTED STA Stop: 10/26/20 07:12 Last Admin: 10/26/20 08:00 Dose: 4 mls/sec Documented by: Potassium Chloride/Sodium Chloride (Normal Saline With 20 Meq Kcl) 1,000 mls @ 125 mls/hr IV ASDIRECTED [facility] Last Admin: 10/28/20 12:11 Dose: 125 mls/hr Documented by: Iopamidol (Iopamidol 612 Mg/Ml 150 Ml Bottle) 150 ml IV . DIRECTED STA Stop: 10/26/20 07:12 Last Admin: 10/26/20 07:59 Dose: 150 ml Documented by: Lisinopril (Lisinopril 20 Mg Tab) 20 mg PO DAILY [facility] Last Admin: 10/29/20 08:28 Dose: 20 mg Documented by: Lorazepam (Lorazepam 2 Mg/Ml Sdv) 0.5 mg IVPUSH Q4H PRN PRN Reason: Nausea/Vomiting Magnesium Hydroxide (Magnesium Hydroxide 400 Mg/5 Ml Susp 30 Ml Cup) 30 ml PO Q12H PRN PRN Reason: Constipation Melatonin (Melatonin 3 Mg Tab) 9 mg PO BEDTIME PRN PRN Reason: Sleep Ondansetron HCl (Ondansetron 4 Mg/2 Ml Sdv) 4 mg IVPUSH ONETIME ONE Stop: 10/26/20 07:20 Last Admin: 10/26/20 07:29 Dose: 4 mg Documented by: Ondansetron HCl (Ondansetron 4 Mg/2 Ml Sdv) 4 mg IV Q6H PRN PRN Reason: Nausea/Vomiting Ondansetron HCl (Ondansetron 4 Mg Tab.Dis) 4 mg PO Q6H PRN PRN Reason: Nausea able to take PO Pantoprazole Sodium (Pantoprazole 40 Mg Vial) 40 mg IV Q24H [facility] Last Admin: 10/29/20 11:37 Dose: Not Given Documented by: Prednisone (Prednisone 20 Mg Tab) 20 mg PO DAILY [facility] Stop: 10/29/20 09:01 Last Admin: 10/29/20 08:28 Dose: 20 mg Documented by: Senna/Docusate Sodium (Docusate Sodium/Sennosides 50-8.6 Mg Tab) 1 tab PO BID PRN PRN Reason: Constipation Sodium Chloride (Sodium Chloride 0.9% 10 Ml Syringe) 10 ml FLUSH ASDIRECTED PRN PRN Reason: Keep Vein Open Last Admin: 10/26/20 07:17 Dose: 10 ml Documented by:
== END 2020-10-29 11:58 | disposition home or self-care (01) | DRG 247 ==
LOC: JP.ED 06:17 → JP.MS 09:45
PROVIDERS: ADMIT Internal Medicine; ATTEND Internal Medicine
DX: K56.51 Intestinal adhesions [bands], with partial obstruction (principal); J06.9 Acute upper respiratory infection, unspecified; I10 Essential (primary) hypertension; H91.90 Unspecified hearing loss, unspecified ear; H54.7 Unspecified visual loss; K21.9 Gastro-esophageal reflux disease without esophagitis; J45.909 Unspecified asthma, uncomplicated; M19.90 Unspecified osteoarthritis, unspecified site; Z79.51 Long term (current) use of inhaled steroids; Z79.82 Long term (current) use of aspirin; Z79.52 Long term (current) use of systemic steroids; Z79.899 Other long term (current) drug therapy; Z90.49 Acquired absence of other specified parts of digestive tract
CPT/HCPCS: 36415; 43752; 71045; 71045-26; 74019; 74019-26; 74177; 80048; 80053; 83605; 83690; 83735; 85025; 85027; 96374; 96375; 99284; 99285-25; A9270-GY; C9113; J2405; J3010; J3480; J7030; J7512; Q9967

== ENCOUNTER 2022-07-03 18:00 | Emergency (ER) | payer BC ==
[2022-07-03] MEDS ORDERED: Ondansetron 4 MG/2 ML SDV IVPUSH ONE (19:08)
[2022-07-03] MEDS ORDERED: Sodium Chloride 0.9% 10 ML Syringe FLUSH PRN (19:08)
[2022-07-03 19:52] LABS: ESTIMATED GFR 97 mL/min (>60)
[2022-07-03 20:24] LABS: CORONAVIRUS COVID-19 NAA NEGATIVE (NEGATIVE)
[2022-07-03] MEDS ORDERED: Sodium Chloride 0.9% 10 ML Syringe FLUSH ONE (20:51)
[2022-07-03] MEDS ORDERED: Iopamidol 612 MG/ML 100 ML Bottle IV SCH (21:00)
[2022-07-03] MEDS ORDERED: Sodium Chloride 0.9% 50 ML IV SCH (21:00)
[2022-07-03] MEDS ORDERED: Sodium Chloride 0.9% 1,000 ML IV SCH (21:00)
[2022-07-03 22:05] VITALS: BP 133/82; PULSE 91
== END 2022-07-03 22:23 | disposition home or self-care (01) ==
LOC: JP.ED 18:00
DX: A08.4 Viral intestinal infection, unspecified (principal); J45.909 Unspecified asthma, uncomplicated; I10 Essential (primary) hypertension; Z90.49 Acquired absence of other specified parts of digestive tract; Z20.822 Contact with and (suspected) exposure to COVID-19; Z79.899 Other long term (current) drug therapy
CPT/HCPCS: 0241U; 36415; 74177; 80053; 85025; 86140; 96361; 96374; 99284; J2405; J3490; J7030; Q9967

== ENCOUNTER 2023-02-20 09:30 | Inpatient (IN) | payer BC ==
[2023-02-20 10:12] LABS: BASOPHILS PERCENT AUTO 0.1 % (0.1-1.3); EOSINOPHILS PERCENT AUTO 0.1 % (0.0-5.4); HEMATOCRIT 48.3 % (38.4-49.7); HEMOGLOBIN 16.9 g/dL (12.9-16.9); IMMATURE GRAN ABSOLUTE AUTO 0.05 K/uL (0.00-0.23); IMMATURE GRAN PERCENT AUTO 0.3 % (0.0-0.7); LYMPHOCYTES ABSOLUTE AUTO 0.92 K/uL (0.8-3.3); LYMPHOCYTES PERCENT AUTO 5.6 % (11.4-47.7); MEAN CORPUSCULAR HEMOGLOBIN 32.1 pg (31.6-35.5); MEAN CORPUSCULAR VOLUME 91.7 fL (81.4-99.0); MONOCYTES ABSOLUTE AUTO 1.29 K/uL (0.20-0.90); MONOCYTES PERCENT AUTO 7.9 % (3.3-12.6); NEUTROPHILS ABSOLUTE AUTO 14.07 K/uL (1.0-7.6); PLATELET COUNT,PLT 261 K/uL (130-375); RED BLOOD CELL COUNT 5.27 M/uL (4.14-5.76); WHITE BLOOD CELL COUNT,WBC 16.4 K/uL (3.2-11.0)
[2023-02-20 10:14] LABS: BASOPHILS ABSOLUTE AUTO 0.02 K/uL (0.00-0.10); EOSINOPHILS ABSOLUTE AUTO 0.02 K/uL (0.00-0.40)
[2023-02-20] MEDS ORDERED: Sodium Chloride 0.9% 10 ML Syringe FLUSH ONE (10:17)
[2023-02-20] MEDS ORDERED: Iopamidol 612 MG/ML 100 ML Bottle IV PRN (10:17)
[2023-02-20] MEDS ORDERED: Sodium Chloride 0.9% 50 ML IV SCH (10:30)
[2023-02-20 10:33] LABS: A/G RATIO 1.1 (1.2-2.2); ALANINE AMINOTRANSFERASE,ALT 68 U/L (12-78); ALBUMIN 4.1 g/dL (3.4-5.0); ALKALINE PHOSPHATASE 72 U/L (46-116); ANION GAP 12.5 mmol/L (5.0-14.0); ASPARTATE AMNIOTRANSFERASE,AST 56 U/L (15-37); BILIRUBIN TOTAL 0.8 mg/dL (0.2-1.0); BLOOD UREA NITROGEN,BUN 22 mg/dL (7-18); C-REACTIVE PROTEIN 6.11 mg/dL (0.0-0.3); CALCIUM 9.1 mg/dL (8.5-10.1); CARBON DIOXIDE,CO2 28 mmol/L (21-32); CHLORIDE,CL 94 mmol/L (100-108); EST CRCL DRUG DOSING (CG) 82.99 mL/min; ESTIMATED GFR 85 mL/min (>60); GLUCOSE RANDOM 161 mg/dL (74-106); POTASSIUM,K 3.5 mmol/L (3.6-5.2); PROTEIN TOTAL,TP 7.9 g/dL (6.4-8.2); SODIUM,NA 131 mmol/L (140-148)
[2023-02-20] MEDS ORDERED: Sodium Chloride 0.9% 1,000 ML IV ONE (11:05)
[2023-02-20 12:47] LABS: CORONAVIRUS COVID-19 NAA NEGATIVE (NEGATIVE); INFLUENZA A NAA NEGATIVE (NEGATIVE); INFLUENZA B NAA NEGATIVE (NEGATIVE); RESPIRATORY SYNCYTIAL VIR NAA NEGATIVE (NEGATIVE)
[2023-02-20] MEDS ORDERED: Naloxone 0.4 MG/ML SDV IVPUSH PRN (14:38)
[2023-02-20] MEDS ORDERED: Sodium Chloride 0.9% 10 ML Syringe FLUSH PRN (14:38)
[2023-02-20] MEDS ORDERED: Albuterol 6.7 GM Inhaler INH PRN (14:38)
[2023-02-20] MEDS ORDERED: Albuterol 0.083% 2.5 MG/3 ML Neb Soln NEB PRN (14:38)
[2023-02-20] MEDS: Ondansetron 4 MG/2 ML SDV IV PRN ×2 (17:04→21:03)
[2023-02-20] MEDS: HYDROmorphone 0.5 MG/0.5 ML Syringe IVPUSH PRN ×2 (17:04→21:03)
[2023-02-20] MEDS: Pantoprazole 40 MG Vial IVPUSH SCH (17:04)
[2023-02-20] MEDS: Benzocaine/Cetylpyridinium/Menthol Lozenge MUCMEM PRN (20:56)
[2023-02-20] MEDS: Formoterol/Mometasone 200-5 MCG 8.8 GM Inhaler IH SCH (20:56)
[2023-02-20] MEDS: Sodium Chloride 0.9% 1,000 ML IV SCH (22:32)
[2023-02-20 22:43] LABS: APPEARANCE,URINE CLEAR (CLEAR); BILIRUBIN,URINE SMALL (NEGATIVE); COLOR,URINE YELLOW (YELLOW); GLUCOSE,URINE NEGATIVE (NEGATIVE); KETONES,URINE 40 mg/dL (NEGATIVE); LEUKOCYTE ESTERASE,URINE NEGATIVE (NEGATIVE); NITRITE,URINE NEGATIVE (NEGATIVE); OCCULT BLOOD,URINE TRACE-INTACT (NEGATIVE); PH,URINE 5.5 (5.0-8.0); PROTEIN,URINE TRACE mg/dL (NEGATIVE); UROBILINOGEN,URINE 0.2 EU/dL (0.2-1.0)
[2023-02-20 23:21] LABS: AMORPHOUS SEDIMENT,URINE NOT SEEN; BACTERIA,URINE MODERATE; EPITHELIAL CELLS,URINE RARE; MUCUS,URINE NOT SEEN; RBC,URINE 0-5 (0-5); WBC,URINE 0-5 (0-5)
[2023-02-21] MEDS: HYDROmorphone 0.5 MG/0.5 ML Syringe IVPUSH PRN (01:08)
[2023-02-21] MEDS: Ondansetron 4 MG/2 ML SDV IV PRN (01:08)
[2023-02-21] MEDS: Benzocaine/Cetylpyridinium/Menthol Lozenge MUCMEM PRN (05:26)
[2023-02-21] MEDS: Sodium Chloride 0.9% 1,000 ML IV SCH (05:55)
[2023-02-21 06:00] LABS: BASOPHILS PERCENT AUTO 0.1 % (0.1-1.3); HEMATOCRIT 46.8 % (38.4-49.7); HEMOGLOBIN 16.4 g/dL (12.9-16.9); IMMATURE GRAN ABSOLUTE AUTO 0.06 K/uL (0.00-0.23); IMMATURE GRAN PERCENT AUTO 0.4 % (0.0-0.7); LYMPHOCYTES ABSOLUTE AUTO 1.18 K/uL (0.8-3.3); LYMPHOCYTES PERCENT AUTO 8.6 % (11.4-47.7); MEAN CORPUSCULAR HEMOGLOBIN 32.2 pg (31.6-35.5); MEAN CORPUSCULAR VOLUME 91.9 fL (81.4-99.0); MONOCYTES ABSOLUTE AUTO 1.18 K/uL (0.20-0.90); MONOCYTES PERCENT AUTO 8.6 % (3.3-12.6); NEUTROPHILS ABSOLUTE AUTO 11.29 K/uL (1.0-7.6); NEUTROPHILS PERCENT AUTO 82.3 % (40.0-78.1); PLATELET COUNT,PLT 286 K/uL (130-375); RED BLOOD CELL COUNT 5.09 M/uL (4.14-5.76); WHITE BLOOD CELL COUNT,WBC 13.7 K/uL (3.2-11.0)
[2023-02-21 06:13] LABS: BASOPHILS ABSOLUTE AUTO 0.02 K/uL (0.00-0.10)
[2023-02-21 06:16] LABS: ANION GAP 10.6 mmol/L (5.0-14.0); CALCIUM 8.3 mg/dL (8.5-10.1); EST CRCL DRUG DOSING (CG) 82.99 mL/min; MAGNESIUM 1.7 mg/dL (1.8-2.4); POTASSIUM,K 3.6 mmol/L (3.6-5.2)
[2023-02-21] MEDS: Formoterol/Mometasone 200-5 MCG 8.8 GM Inhaler IH SCH ×2 (08:02→21:08)
[2023-02-21] MEDS: Pantoprazole 40 MG Vial IVPUSH SCH (08:40)
[2023-02-21] MEDS: Nystatin Susp 100,000 Unit/ML 5 ML UD Cup PO SCH ×5 (08:40→21:08)
[2023-02-21] MEDS: Fluticasone NASAL Spray 16 GM Bottle NAS SCH (08:40)
[2023-02-21] MEDS ORDERED: Bisacodyl 10 MG Supp RECTAL SCH (09:00)
[2023-02-21] MEDS: methylPREDNISolone Sodium Succinate 40 MG/1 ML SDV IVPUSH SCH ×2 (11:02→21:08)
[2023-02-21] MEDS: Dextrose 5%-Lactated Ringers 1,000 ML IV SCH ×2 (14:10→22:36)
[2023-02-21] MEDS: Lidocaine 2% 30 ML, Alum Hydrox/Mag Hydrox/Simeth 30 ML, diphenhydrAMINE 75 MG PO PRN ×9 (14:10→23:32)
[2023-02-22] MEDS: Nystatin Susp 100,000 Unit/ML 5 ML UD Cup PO SCH ×4 (06:06→21:47)
[2023-02-22] MEDS: Dextrose 5%-Lactated Ringers 1,000 ML IV SCH (06:08)
[2023-02-22] MEDS: Lidocaine 2% 30 ML, Alum Hydrox/Mag Hydrox/Simeth 30 ML, diphenhydrAMINE 75 MG PO PRN ×6 (07:15→14:12)
[2023-02-22] MEDS: Formoterol/Mometasone 200-5 MCG 8.8 GM Inhaler IH SCH ×2 (08:02→21:46)
[2023-02-22] MEDS: Fluticasone NASAL Spray 16 GM Bottle NAS SCH (08:14)
[2023-02-22] MEDS: Benzocaine/Cetylpyridinium/Menthol Lozenge MUCMEM PRN ×2 (08:15→16:04)
[2023-02-22] MEDS: HYDROmorphone 0.5 MG/0.5 ML Syringe IVPUSH PRN (08:15)
[2023-02-22] MEDS: Pantoprazole 40 MG Vial IVPUSH SCH (08:16)
[2023-02-22] MEDS: methylPREDNISolone Sodium Succinate 40 MG/1 ML SDV IVPUSH SCH ×2 (10:12→21:47)
[2023-02-23] MEDS: Benzocaine/Cetylpyridinium/Menthol Lozenge MUCMEM PRN (01:34)
[2023-02-23 05:07] VITALS: BP 133/78; PULSE 80
[2023-02-23] MEDS: Nystatin Susp 100,000 Unit/ML 5 ML UD Cup PO SCH ×2 (05:07→10:23)
[2023-02-23] MEDS: Formoterol/Mometasone 200-5 MCG 8.8 GM Inhaler IH SCH (08:00)
[2023-02-23] MEDS: Fluticasone NASAL Spray 16 GM Bottle NAS SCH (08:24)
[2023-02-23] MEDS: Pantoprazole 40 MG Vial IVPUSH SCH (08:24)
[2023-02-23] MEDS: Lidocaine 2% 30 ML, Alum Hydrox/Mag Hydrox/Simeth 30 ML, diphenhydrAMINE 75 MG PO PRN ×3 (08:24)
== END 2023-02-23 13:55 | disposition home or self-care (01) | DRG 247 ==
LOC: JP.ED 09:30 → JP.MS 11:34
PROVIDERS: ADMIT Hospitalist; ATTEND Internal Medicine
DX: K56.51 Intestinal adhesions [bands], with partial obstruction (principal); C85.91 Non-Hodgkin lymphoma, unspecified, lymph nodes of head, face, and neck; I10 Essential (primary) hypertension; H91.90 Unspecified hearing loss, unspecified ear; K21.9 Gastro-esophageal reflux disease without esophagitis; J45.909 Unspecified asthma, uncomplicated; M19.90 Unspecified osteoarthritis, unspecified site; Z90.89 Acquired absence of other organs; Z79.899 Other long term (current) drug therapy; Z90.49 Acquired absence of other specified parts of digestive tract; Z98.890 Other specified postprocedural states
CPT/HCPCS: 0241U; 36415; 71045; 71045-26; 74019; 74019-26; 74177; 80048; 80053; 81001; 83605; 83690; 83735; 85025; 86140; 94640; 99285; A9270-GY; C9113; J1170; J2405; J2920; J3490; J7030; J7121; Q9967